=== PATIENT | male | born 1940 | race Caucasian/White ===

== ENCOUNTER 2020-09-15 12:00 | Outpatient (CLI) | payer MEDICARE, SELFPAY ==
[2020-09-15 12:44] LABS: Basophils Absolute Auto 0.02 K/mm3 (0.00-0.10); Basophils Percent Auto 0.4 % (0.0-1.0); Eosinophils Absolute Auto 0.08 K/mm3 (0.02-0.50); Eosinophils Percent Auto 1.4 % (1.0-6.0); Hematocrit 36.8 % (37.0-46.0); Hemoglobin 12.6 g/dL (12.4-15.3); Immature Granulocyte Absolute 0.03 K/mm3 (0.00-0.00); Immature Granulocyte Percent A 0.5 % (0.0-0.0); Lymphocytes Absolute Auto 0.83 K/mm3 (1.10-4.50); Lymphocytes Percent Auto 14.9 % (18.0-42.0); Mean Corpuscular HGB Conc 34.2 g/dL (32.0-36.0); Mean Corpuscular Hemoglobin 30.4 pg (27.0-31.0); Mean Corpuscular Volume 88.7 fL (78.0-102.0); Mean Platelet Volume 9.1 fl (8.7-11.0); Monocytes Absolute Auto 0.42 K/mm3 (0.10-0.90); Monocytes Percent Auto 7.6 % (2.0-11.0); Neutrophils Absolute Auto 4.2 K/mm3 (1.7-7.2); Neutrophils Percent Auto 75.2 % (50.0-70.0); Platelet Count Result 204 K/mm3 (150-420); Red Blood Count 4.15 M/mm3 (4.70-6.10); Red Cell Distribution Width 11.9 % (11.6-14.4); White Blood Count 5.6 K/mm3 (4.8-10.8)
[2020-09-15 13:39] LABS: Anion Gap 8 mmol/L (8-16); Blood Urea Nitrogen 26 mg/dL (7-18); Calcium 9.1 mg/dL (8.5-10.1); Carbon Dioxide 30 mmol/L (21-32); Chloride 102 mmol/L (98-108); Estimated Glomerular Filt Rate 41; Ferritin 181 ng/mL (26-388); Free T4 Free Thyroxine 0.97 ng/dL (0.76-1.46); Glucose 128 mg/dL (70-99); Iron 83 ug/dL (65-175); Osmolality Calculated 296 mOsm/kg (285-295); Percent Iron Saturation 32 % (12-57); Potassium 4.5 mmol/L (3.5-5.1); Sodium 140 mmol/L (136-145); Thyroid Stimulating Hormone 3.01 uIU/mL (0.36-3.74); Vitamin B12 541 pg/mL (193-986)
== END 2020-09-15 12:01 | disposition home or self-care (01) ==
LOC: CHSLAB 12:03
PROVIDERS: PCP Internal Medicine; Visit Provider Internal Medicine
DX: D64.9 Anemia, unspecified (principal); I10 Essential (primary) hypertension
CPT/HCPCS: 36415; 80048; 82607; 82728; 83540; 83550; 84439; 84443; 84481; 85025

== ENCOUNTER 2020-09-20 10:33 | Outpatient (CLI) | payer MEDICARE, SELFPAY ==
--- NOTE | 2020-09-20 10:38 | ECHO_ITS ---
Patient Info Name: Sami Bryant Age: 80 years : 1940 Gender: Male Ht: 67 in Wt: 170 lbs BSA: 1.92 m2 HR: 65 bpm BP: 124 / 40 mmHg Heart Rhythm: Sinus Rhythm Technical Quality: Good Exam Date: 09/20/2020 9:41 AM Exam Location: [facility] Patient Status: Outpatient Admit Date: 09/20/2020 Staff Ordering Physician: Ko Nunez MD Steel Welder: Stephanie Severino RDCS Attending Provider: Ko Nunez MD Referring Physician: Enrique HECK; Exam Type: CA echo doppler color flow Study Info Indications I34.0 - Nonrheumatic mitral (valve) insufficiency Complete two-dimensional, color flow and Doppler transthoracic echocardiogram is performed. Strain analysis performed. History/Risk Factors Hypertension: No Dyslipidemia: No Congenital Heart Disease (CHD): No Diabetic Therapy: Oral Peripheral Arterial Disease (PAD): No Myocardial Infarction (LA): No Chronic Lung Disease: No Obesity: No Renal Disease: No Coronary Artery Disease (CAD) No Congestive Heart Failure (CHF): No Cardiomyopathy/LV Systolic Dysfunction: No Diabetes Mellitus: Type II COPD: No Tobacco Use: Never Cerebrovascular Disease: No Family History: Diabetes Mellitus Deep Vein Thrombosis (DVT): None Dialysis: None Frailty Scale (CSHA): 3: Managing Well Cardiac Arrest: No Summary 1. Complete two-dimensional, color flow and Doppler transthoracic echocardiogram is performed. 2. Left ventricular chamber dimension is normal. 3. Left ventricular systolic function is normal, estimated at 60-65%. 4. There is moderately increased left ventricular wall thickness. 5. The left ventricular diastolic function is grade I diastolic dysfunction. 6. E/e' 21 is elevated. 7. Global longitudinal strain is normal at -19.5%. 8. Left atrial chamber dimension is moderately enlarged. 9. There is severe aortic valve sclerosis. 10. There is moderate aortic valve stenosis with a peak velocity of 304 cm/s, mean gradient of 10 mmHg, and aortic valve area of 1.3 cm2. 11. There is mild to moderate aortic valve regurgitation. 12. The mitral valve has mildly thickened leaflets and moderately calcified annulus. 13. There is trace mitral valve regurgitation. 14. There is trace tricuspid valve regurgitation. 15. No pulmonary hypertension, estimated pulmonary arterial systolic pressure is 26 mmHg. 16. Small atheroma in anterior and posterior aortic root. Recommendations * Continue medical therapy for diabetes. Left Ventricle E/e' 21 is elevated. Global longitudinal strain is normal at -19.5%. Left ventricular chamber dimension is normal. Left ventricular systolic function is normal, estimated at 60-65%. There is moderately increased left ventricular wall thickness. The left ventricular diastolic function is grade I diastolic dysfunction. Right Ventricle Right ventricular chamber dimension is normal. Right ventricular systolic function is normal. Left Atria Left atrial chamber dimension is moderately enlarged. Right Atria Right atrial chamber dimension is normal. Aortic Valve The aortic valve is trileaflet. There is severe aortic valve sclerosis. There is moderate aortic valve stenosis with a peak velocity of 304 cm/s, mean gradient of 10 mmHg, and aortic valve area of 1.3 cm2. There is mild to moderate aortic valve regurgitation. Pulmonic Valve There is no pulmonic regurgitation. Mitral Valve The mitral v
== END 2020-09-20 10:34 | disposition home or self-care (01) ==
LOC: CHSIMG 10:34
PROVIDERS: PCP Internal Medicine; Visit Provider Internal Medicine
DX: R01.1 Cardiac murmur, unspecified (principal)
CPT/HCPCS: 93306

== ENCOUNTER 2020-11-21 21:28 | Emergency (ER) | payer MEDICARE, SELFPAY ==
--- NOTE | ~2020-11-21 | XR_ITS ---
XR chest 1V portable DATE: 11/21/2020 22:00 INDICATION: Chest pain, bradycardia, sweating, vomiting TECHNIQUE: Portable upright AP chest views on 11/21/2020 at 2158 2159 hours COMPARISON: 12/10/2018 PA and lateral chest FINDINGS: Heart size is normal. Is mild aortic unfolding. No hilar or mediastinal enlargement. No pul monary infiltrate or consolidation, pleural effusion or pulmonary vascular congestion or pneumothorax . IMPRESSION: No active cardiopulmonary disease Reviewed, dictated and finalized at location [facility].
--- NOTE | ~2020-11-21 | CT_ITS ---
EXAMINATION: CT brain wo con DATE: 11/21/2020 22:10 INDICATION: Altered mental status TECHNIQUE: Computed tomography (CT) of the head was performed without intravenous contrast. The mA wa s adjusted according to patient size. Iterative reconstruction technique was employed. Exam dose: 68 1.00 mGy-cm total exam DLP. COMPARISON: None FINDINGS: There is bilateral carotid siphon internal carotid artery prominent calcification. There is nonspecific diminished attenuation of the subcortical and periventricular cerebral white matter, lik hoang due to chronic small vessel ischemic changes. Minimal left basal ganglia calcification. No intracranial mass lesion or hemorrhage, midline shift or mass effect effect or subdural or epidura l hematoma is detected. No fracture or bone destruction of the cranial vault. The included paranasal sinuses and mastoid air cells are normally developed and aerated. IMPRESSION: Cerebral atherosclerosis and chronic small vessel ischemic changes of the cerebral white matter No acute intracranial finding Reviewed, dictated and finalized at Location [facility]. Reviewed, dictated and finalized at location [facility].
[2020-11-21 21:38] VITALS: BP 126/52; PULSE 59; RESP 18; TEMP 36.2; O2SAT 100
--- NOTE | 2020-11-21 21:48 | ECG_ITS ---
Measurements Intervals [place] Rate: 66 P: [place]: 0 QRS: -54 QRSD: 133 T: 32 QT: 465 QTc: 488 Interpretive Statements SINUS OR ECTOPIC ATRIAL RHYTHM RIGHT BUNDLE BRANCH BLOCK LEFT ANTERIOR FASCICULAR BLOCK BASELINE ARTIFACT- I, II, III, AVR, AVL, AVF, V1-V6 ABNORMAL ECG Electronically Signed On 11-22-2020 6:05:28 CDT by Rc Barnes D.O.
[2020-11-21] MEDS: LACTATED RINGERS 1,000 ML 999 ML IV CONT (22:09)
[2020-11-21 22:10] VITALS: BP 153/103; PULSE 62; RESP 16; TEMP 36.5; O2SAT 99
--- NOTE | 2020-11-21 22:23 | ED.AMS ---
HPI - Altered Mental Status General Chief Complaint: Altered Mental Status Stated Complaint: ams, hr 40 at time of arrival Time Seen by Provider: 11/21/20 21:47 Source: patient and family Mode of arrival: EMS Limitations: dementia History of Present Illness HPI narrative: Patient is an 80-year-old male brought in by EMS after having an episode of unresponsiveness at home, described by as staring into space, not responding, became diaphoretic and threw up which lasted approximately 3 minutes and now resolved. states that he is back to baseline. Patient denies any complaints. Patient denies any headache, dizziness, chest pain, shortness of breath, abdominal pain, nausea, diarrhea, fever, chills or urinary symptoms. Related Data Allergies Allergy/AdvReac Type Severity Reaction Status Date / Time No Known Allergies Allergy Unverified 12/10/18 11:51 Review of Systems Review of Systems: All systems reviewed & are unremarkable except as noted in HPI and below Constitutional: Constitutional: Denies body ache(s), Denies chills, Denies excessive sweating, Denies fatigue, Denies fever(s), Denies headache(s), Denies lethargy, Denies malaise, Denies weakness and Denies weight loss Eyes: Eyes: Denies blurry vision, Denies change in vision and Denies loss of vision ENT: Denies dizziness, Denies ear discharge, Denies headache(s), Denies lip swelling, Denies epistaxis, Denies nasal congestion, Denies neck pain, Denies throat swelling and Denies tongue swelling Cardiovascular: Cardiovascular: Denies chest pain, Denies chest pain at rest, Denies chest pain with activity, Denies diaphoresis, Denies rapid heart rate, Denies edema, Denies irregular heart rhythm, Denies lightheadedness, Denies palpitations, Denies dyspnea and Denies dyspnea on exertion Respiratory: Respiratory: Denies chest congestion, Denies cough, Denies hemoptysis, Denies dyspnea and Denies dyspnea on exertion Gastrointestinal: Gastrointestinal: Denies abdominal pain, Denies melena, Denies hematochezia, Denies diarrhea, Denies nausea, Denies vomiting and Denies hematemesis Musculoskeletal: Musculoskeletal: Denies abnormal gait, Denies deformity, Denies joint swelling, Denies limited range of motion, Denies neck pain and Denies numbness Neurologic: Denies Abnormal speech present, Denies abnormal gait, Denies dizziness, Denies headache(s), Denies focal weakness, Denies loss of vision, Denies numbness, Denies Other visual disturbances, Denies Sensory deficit (Neuro) and Denies weakness Psychiatric: Psychiatric: Denies confusion, Denies depression, Denies auditory hallucinations, Denies homicidal ideation and Denies suicidal ideation Endocrine: Endocrine: Denies cold intolerance, Denies excessive sweating, Denies fatigue, Denies heat intolerance and Denies palpitations Hematologic/Lymphatic: Hematologic/Lymphatic: Denies easy bleeding and Denies easy bruising Allergic/Immunologic: Allergic/Immunologic: Denies lip swelling, Denies throat swelling and Denies tongue swelling PMFSH Social History Social History Gender identity (if verbalized by the patient): Male Comments Past medical history: Alzheimer's dementia, hypertension, hyperlipidemia, diabetes Family history: Unknown Social history: Non-smoker no EtOH use, lives at home with Exam Const: General: cooperative, healthy appearing, comfortable, no acute distress, well developed, alert and awake; No confusion Orientation/consciousness: oriented to person, oriented to place and No confusion Limitations: no limitations HENMT: Head: normal to inspection, normocephalic and atraumatic Ears: hearing grossly normal bilaterally, TM normal on the right and TM normal on the left General nose exam: Normal external nose present, Normal nares present and No nasal discharge present Face and sinus: normal facial exam Mouth: Yes Normal oral and palatal mucosa present, Yes lip normal, Yes tongue normal and Yes oropharynx normal T
[2020-11-21 22:30] LABS: Basophils Percent Auto 0.3 % (0.2-1.2); Eosinophils Absolute Auto 0.1 K/mm3 (0-0.3); Eosinophils Percent Auto 1.1 % (0-4.4); Hematocrit 34.4 % (42.0-52.0); Hemoglobin 11.7 g/dL (14.0-18.0); Immature Granulocyte Absolute 0.02 K/mm3 (0.00-0.031); Immature Granulocyte Percent A 0.3 % (0-0.5); Lymphocytes Absolute Auto 0.61 K/mm3 (0.9-3.2); Lymphocytes Percent Auto 9.7 % (18.3-44.2); Mean Corpuscular Hemoglobin 30.2 pg (26-34); Mean Corpuscular Volume 88.7 fl (80-100); Mean Platelet Volume 9.6 fl (7.4-10.4); Monocytes Absolute Auto 0.4 K/mm3 (0.1-0.6); Monocytes Percent Auto 6.7 % (2.6-8.5); Neutrophils Absolute Auto 5.1 K/mm3 (1.3-6.7); Neutrophils Percent Auto 81.9 % (45.5-73.1); Platelet Count Result 170 k/mm3 (150-375); Red Blood Count 3.88 M/mm3 (4.6-6.20); Red Cell Distribution Width 11.6 % (11.5-14.5); White Blood Count 6.3 K/mm3 (4.5-10.0)
[2020-11-21 22:34] LABS: Partial Thromboplastin Time 23.9 SECONDS (22.3-36.8)
[2020-11-21 22:36] LABS: Alanine Aminotransferase 20 U/L (4-50); Albumin Level 3.8 g/dL (3.5-5.1); Alkaline Phosphatase 79 U/L (38-126); Anion Gap 9 mmol/L (8-16); Aspartate Amino Transferase 23 U/L (17-59); Bilirubin,Total 0.5 mg/dL (0.2-1.3); Blood Urea Nitrogen 25 mg/dL (9-20); Calcium 9.3 mg/dL (8.4-10.2); Carbon Dioxide 25 mmol/L (22-30); Chloride 105 mmol/L (98-107); Estimated CRCL calculation 33 ml/min; Estimated Glomerular Filt Rate 45; Glucose 224 mg/dL (75-110); Lactic Acid Reflex 2.2 mmol/L (0.7-2.1); Potassium 4.5 mmol/L (3.4-5.0); Sodium 139 mmol/L (137-145)
[2020-11-21 22:47] LABS: Troponin I 0.013 ng/mL (0.000-0.034)
[2020-11-21 23:00] VITALS: BP 118/53; PULSE 62; RESP 18; O2SAT 99
[2020-11-21 23:39] LABS: Add Urine Microscopic? YES; Appearance Urine Clear (Clear); Bilirubin Urine Negative (Negative); Blood Urine 1+ (Negative); Color Urine Yellow (Yellow); Glucose Urine UA 3+ mg/dL (Negative); Ketones Urine 1+ mg/dL (Negative); Leukocyte Esterase Ur Negative LEU/UL (Negative); Mucus Urine Rare /lpf; Nitrate Urine Negative (Negative); Protein Urine 1+ mg/dL (Negative); Specific Grav Ur 1.018 (1.001-1.035); Urobilinogen Urine Negative mg/dL (<2.0); WBC Urine 0-3 /hpf
[2020-11-22 00:18] VITALS: BP 116/59; PULSE 57; RESP 16; O2SAT 99
[2020-11-22 01:23] LABS: Reflex Lactic Acid Yes or No Add Lactic
== END 2020-11-22 00:18 | disposition home or self-care (01) ==
PROVIDERS: Emergency Provider Emergency Medicine; PCP Internal Medicine
DX: R40.4 Transient alteration of awareness (principal); G30.9 Alzheimer's disease, unspecified; F02.80 Dementia in other diseases classified elsewhere, unspecified severity, without behavioral disturbance, psychotic disturbance, mood disturbance, and anxiety; I10 Essential (primary) hypertension; E78.5 Hyperlipidemia, unspecified; E11.9 Type 2 diabetes mellitus without complications; I67.2 Cerebral atherosclerosis; I45.2 Bifascicular block
CPT/HCPCS: 36415; 51701; 70450; 71045; 80053; 81001; 83605; 84484; 85025; 85610; 85730; 93005; 96360; 99284; J7120

== ENCOUNTER 2020-12-04 12:51 | Outpatient (CLI) | payer MEDICARE, SELFPAY ==
--- NOTE | 2021-01-05 10:34 | WPDHOLTEREM ---
Holter/Event Monitor Holter/Event Monitor Date of procedure: 12/04/20 Holter/Event Procedure: Event Monitor Indications: Syncope Conclusion: 1. 26 days event monitor between 12/04/20-01/02/21. There are 30 available transmissions for analysis. 2. Predominant rhythm is sinus rhythm. HR range 50-132 bpm; average HR 65 bpm. 3. There are occasional premature supraventricular complexes with total burden of 2%. No supraventricular tachycardia. 4. There are occasional premature ventricular complexes with total burden of 2%. There is 1 episode of ventricular tachycardia at 132 bpm lasting 5 beats on 01/01/21 at 15:53. 5. No significant pauses greater than 2 seconds. 6. No symptoms available for correlation.
== END 2020-12-04 12:52 | disposition home or self-care (01) ==
PROVIDERS: PCP Internal Medicine; Visit Provider Internal Medicine
DX: R55 Syncope and collapse (principal); R00.1 Bradycardia, unspecified
CPT/HCPCS: 93272

== ENCOUNTER 2020-12-16 07:20 | Outpatient (CLI) | payer MEDICARE, SELFPAY ==
[2020-12-16 07:33] LABS: Basophils Absolute Auto 0.02 K/mm3 (0.00-0.10); Basophils Percent Auto 0.4 % (0.0-1.0); Eosinophils Absolute Auto 0.11 K/mm3 (0.02-0.50); Eosinophils Percent Auto 2.3 % (1.0-6.0); Hematocrit 37.1 % (37.0-46.0); Hemoglobin 12.9 g/dL (12.4-15.3); Immature Granulocyte Absolute 0.02 K/mm3 (0.00-0.00); Immature Granulocyte Percent A 0.4 % (0.0-0.0); Lymphocytes Absolute Auto 1.08 K/mm3 (1.10-4.50); Mean Corpuscular HGB Conc 34.8 g/dL (32.0-36.0); Mean Corpuscular Hemoglobin 30.9 pg (27.0-31.0); Mean Corpuscular Volume 88.8 fL (78.0-102.0); Mean Platelet Volume 9.4 fl (8.7-11.0); Monocytes Absolute Auto 0.39 K/mm3 (0.10-0.90); Monocytes Percent Auto 8.3 % (2.0-11.0); Neutrophils Absolute Auto 3.1 K/mm3 (1.7-7.2); Neutrophils Percent Auto 65.6 % (50.0-70.0); Platelet Count Result 196 K/mm3 (150-420); Red Blood Count 4.18 M/mm3 (4.70-6.10); Red Cell Distribution Width 11.4 % (11.6-14.4); White Blood Count 4.7 K/mm3 (4.8-10.8)
[2020-12-16 07:34] LABS: Add Urine Microscopic? YES; Appearance Urine Clear (Clear); Bilirubin Urine Negative (Negative); Blood Urine Negative (Negative); Color Urine Light Yellow (Yellow); Glucose Urine UA Trace (Negative); Ketones Urine Negative (Negative); Leukocyte Esterase Ur Negative LEU/UL (Negative); Nitrate Urine Negative (Negative); Protein Urine Negative (Negative); Specific Grav Ur 1.025 (1.010-1.020); Urobilinogen Urine 0.2 mg/dL (0.2-1.0); pH Urine 5.5 (5.0-8.0)
[2020-12-16 07:38] LABS: Bacteria Urine Trace /hpf; RBC Urine None seen /hpf (0-2); WBC Urine None seen /hpf (0-3)
[2020-12-16 07:42] LABS: Hemoglobin A1C 7.4 % (<5.7)
[2020-12-16 07:52] LABS: MALB Creatinine Ratio 9.8 mg/g (0-30); Microalbumin Urine Random < 13.0 mg/L
[2020-12-16 08:03] LABS: Alanine Aminotransferase 32 U/L (16-63); Albumin Level 3.8 g/dL (3.4-5.0); Alkaline Phosphatase 89 U/L (46-116); Anion Gap 9 mmol/L (8-16); Aspartate Amino Transferase 17 U/L (15-37); Bilirubin,Total 0.6 mg/dL (0.00-1.00); Blood Urea Nitrogen 31 mg/dL (7-18); Calcium 9.2 mg/dL (8.5-10.1); Carbon Dioxide 29 mmol/L (21-32); Chloride 102 mmol/L (98-108); Cholesterol 126 mg/dL (0-200); Creatine Kinase 54 U/L (39-308); Estimated Glomerular Filt Rate 52; Glucose 172 mg/dL (70-99); HDL Direct 45 mg/dL (40-60); LDL Cholesterol Calculated 65 mg/dL (<130); Osmolality Calculated 300 mOsm/kg (285-295); Potassium 4.6 mmol/L (3.5-5.1); Sodium 140 mmol/L (136-145); Total Protein 6.9 g/dL (6.4-8.2); Triglycerides 78 mg/dL (0-150)
== END 2020-12-16 07:21 | disposition home or self-care (01) ==
PROVIDERS: PCP Internal Medicine; Visit Provider Internal Medicine
DX: E11.65 Type 2 diabetes mellitus with hyperglycemia (principal); E78.5 Hyperlipidemia, unspecified; N40.1 Benign prostatic hyperplasia with lower urinary tract symptoms
CPT/HCPCS: 36415; 80053; 80061; 81001; 82043; 82550; 83036; 85025

== ENCOUNTER 2021-02-15 08:29 | Outpatient (CLI) | payer MEDICARE, SELFPAY ==
--- NOTE | 2021-02-15 09:25 | ECHO_ITS ---
Patient Info Name: Sami Bryant Age: 80 years : 1940 Gender: Male Ht: 69 in Wt: 170 lbs BSA: 1.95 m2 HR: 70 bpm BP: 136 / 49 mmHg Exam Date: 02/15/2021 8:27 AM Exam Location: [facility] Patient Status: Outpatient Admit Date: 02/15/2021 Staff Ordering Physician: Ko Nunez MD Knife Setter: Gentry Perrin RDCS, RT Attending Provider: Ko Nunez MD Referring Physician: Enrique HECK; Exam Type: CA echo doppler color flow Study Info Indications I47.2 - Ventricular tachycardia Complete two-dimensional, color flow and Doppler transthoracic echocardiogram is performed. Strain analysis performed. History/Risk Factors Hypertension: No Dyslipidemia: No Congenital Heart Disease (CHD): No Diabetic Therapy: Oral Peripheral Arterial Disease (PAD): No Myocardial Infarction (CT): No Chronic Lung Disease: No Obesity: No Renal Disease: No Coronary Artery Disease (CAD) No Congestive Heart Failure (CHF): No Cardiomyopathy/LV Systolic Dysfunction: No Diabetes Mellitus: Type II COPD: No Tobacco Use: Never Cerebrovascular Disease: No Family History: Diabetes Mellitus Deep Vein Thrombosis (DVT): None Dialysis: None Frailty Scale (CSHA): 3: Managing Well Cardiac Arrest: No Summary 1. Complete two-dimensional, color flow and Doppler transthoracic echocardiogram is performed. 2. Left ventricular chamber dimension is normal. 3. Left ventricular systolic function is normal, estimated at 60-65%. 4. There is mildly increased left ventricular wall thickness. 5. The left ventricular diastolic function is grade I diastolic dysfunction. 6. E/e' 9 is minimally elevated. 7. Global longitudinal strain is normal at -17.6%. 8. There is moderate aortic valve sclerosis. 9. There is moderate aortic valve stenosis with a peak velocity of 295 cm/s, mean gradient of 14 mmHg, and aortic valve area of 1.0 cm2. 10. There is mild aortic valve regurgitation. 11. The mitral valve has severely calcified annulus. 12. No pulmonary hypertension, estimated pulmonary arterial systolic pressure is 25 mmHg. Recommendations * Continue medical therapy for diabetes. Left Ventricle E/e' 9 is minimally elevated. Global longitudinal strain is normal at -17.6%. Left ventricular chamber dimension is normal. Left ventricular systolic function is normal, estimated at 60-65%. There is mildly increased left ventricular wall thickness. The left ventricular diastolic function is grade I diastolic dysfunction. Right Ventricle Right ventricular systolic function is normal and with normal TAPSE 1.9 cm. Right ventricular chamber dimension is normal. Left Atria Left atrial chamber dimension is normal. Right Atria Right atrial chamber dimension is normal. Aortic Valve The aortic valve is not well visualized. There is moderate aortic valve sclerosis. There is moderate aortic valve stenosis with a peak velocity of 295 cm/s, mean gradient of 14 mmHg, and aortic valve area of 1.0 cm2. There is mild aortic valve regurgitation. Pulmonic Valve There is no pulmonic regurgitation. Mitral Valve The mitral valve has severely calcified annulus. There is no mitral valve stenosis. There is no mitral valve regurgitation. Tricuspid Valve There is no tricuspid valve regurgitation. No pulmonary hypertension, estimated pulmonary arterial systolic pressure is 25 mmHg. Pericardium/Pleural There is no per
== END 2021-02-15 08:30 | disposition home or self-care (01) ==
LOC: CHSIMG 08:30
PROVIDERS: PCP Internal Medicine; Visit Provider Internal Medicine
DX: I47.2 Ventricular tachycardia (principal); I65.29 Occlusion and stenosis of unspecified carotid artery; I08.0 Rheumatic disorders of both mitral and aortic valves
CPT/HCPCS: 93306

== ENCOUNTER 2021-03-20 07:56 | Outpatient (CLI) | payer MEDICARE, SELFPAY ==
[2021-03-20 08:15] LABS: Add Urine Microscopic? NO; Appearance Urine Clear (Clear); Basophils Absolute Auto 0.02 K/mm3 (0.00-0.10); Basophils Percent Auto 0.4 % (0.0-1.0); Bilirubin Urine Negative (Negative); Blood Urine Negative (Negative); Color Urine Light Yellow (Yellow); Eosinophils Absolute Auto 0.08 K/mm3 (0.02-0.50); Eosinophils Percent Auto 1.4 % (1.0-6.0); Glucose Urine UA Negative (Negative); Hemoglobin 14.1 g/dL (12.4-15.3); Immature Granulocyte Absolute 0.02 K/mm3 (0.00-0.00); Immature Granulocyte Percent A 0.4 % (0.0-0.0); Ketones Urine Negative (Negative); Leukocyte Esterase Ur Negative LEU/UL (Negative); Lymphocytes Absolute Auto 0.57 K/mm3 (1.10-4.50); Mean Corpuscular HGB Conc 34.4 g/dL (32.0-36.0); Mean Corpuscular Hemoglobin 30.1 pg (27.0-31.0); Mean Corpuscular Volume 87.6 fL (78.0-102.0); Mean Platelet Volume 9.2 fl (8.7-11.0); Monocytes Absolute Auto 0.36 K/mm3 (0.10-0.90); Monocytes Percent Auto 6.3 % (2.0-11.0); Neutrophils Absolute Auto 4.6 K/mm3 (1.7-7.2); Neutrophils Percent Auto 81.5 % (50.0-70.0); Nitrate Urine Negative (Negative); Platelet Count Result 193 K/mm3 (150-420); Protein Urine Negative (Negative); Red Blood Count 4.68 M/mm3 (4.70-6.10); Red Cell Distribution Width 11.5 % (11.6-14.4); Specific Grav Ur 1.025 (1.010-1.020); Urobilinogen Urine 0.2 mg/dL (0.2-1.0); White Blood Count 5.7 K/mm3 (4.8-10.8); pH Urine 5.5 (5.0-8.0)
[2021-03-20 08:31] LABS: Creatinine Urine 156.92 mg/dL (40-278); Hemoglobin A1C 7.9 % (<5.7); MALB Creatinine Ratio 8.2 mg/g (0-30); Microalbumin Urine Random < 13.0 mg/L
[2021-03-20 09:25] LABS: Alanine Aminotransferase 27 U/L (16-63); Alkaline Phosphatase 91 U/L (46-116); Anion Gap 8 mmol/L (8-16); Aspartate Amino Transferase 15 U/L (15-37); Bilirubin,Total 0.7 mg/dL (0.00-1.00); Blood Urea Nitrogen 24 mg/dL (7-18); Calcium 9.3 mg/dL (8.5-10.1); Carbon Dioxide 30 mmol/L (21-32); Chloride 103 mmol/L (98-108); Cholesterol 119 mg/dL (0-200); Creatine Kinase 64 U/L (39-308); Estimated Glomerular Filt Rate 50; Ferritin 166 ng/mL (26-388); Glucose 126 mg/dL (70-99); HDL Direct 48 mg/dL (40-60); Iron 95 ug/dL (65-175); LDL Cholesterol Calculated 54 mg/dL (<130); Osmolality Calculated 298 mOsm/kg (285-295); Percent Iron Saturation 43 % (12-57); Potassium 4.5 mmol/L (3.5-5.1); Sodium 141 mmol/L (136-145); Thyroid Stimulating Hormone 5.35 uIU/mL (0.36-3.74); Triglycerides 86 mg/dL (0-150); Vitamin B12 829 pg/mL (193-986)
== END 2021-03-20 07:57 | disposition home or self-care (01) ==
LOC: CHSLAB 07:58
PROVIDERS: PCP Internal Medicine; Visit Provider Internal Medicine
DX: E11.65 Type 2 diabetes mellitus with hyperglycemia (principal); E78.2 Mixed hyperlipidemia; I12.9 Hypertensive chronic kidney disease with stage 1 through stage 4 chronic kidney disease, or unspecified chronic kidney disease; D64.9 Anemia, unspecified; N18.30 Chronic kidney disease, stage 3 unspecified; N39.0 Urinary tract infection, site not specified
CPT/HCPCS: 36415; 80053; 80061; 81003; 82043; 82550; 82607; 82728; 83036; 83540; 83550; 84439; 84443; 84481; 85025

== ENCOUNTER 2021-04-24 14:30 | Outpatient (CLI) | payer MEDICARE, SELFPAY ==
--- NOTE | ~2021-04-24 | US_ITS ---
EXAMINATION: US carotid duplex BI EXAM DATE: 04/24/2021 15:05 INDICATION: Left carotid bruit, abnormal physical exam. Carotid arteriosclerosis on prior study. TECHNIQUE: Grayscale, color and pulsed Doppler images of the cervical carotid arteries were obtained . The degree of vessel stenosis is placed in one of the following categories: normal, <50% stenosis, 50-69% stenosis, >=70% stenosis but less than near-occlusion, near-occlusion, or occlusion. Note that percent stenosis relative to normal distal artery lumen diameter is indirectly measured from velocit y measurements as described by Fidel, et al. Radiology 2003; 229:340-346. Comparison is made to prior examination from 12/11/2018. FINDINGS: RIGHT SIDE: Right common carotid artery peak systolic velocity (PSV in cm/s): 86 Right bulb/internal carotid artery peak systolic velocity (PSV in cm/s): 137 Right internal carotid artery end diastolic velocity (EDV in cm/s): 23.5 Right ICA/CCA peak systolic ratio: 1.6 Right external carotid artery peak systolic velocity (PSV in cm/s): 110 Right vertebral artery antegrade flow: yes There is moderate carotid bulb plaque. Velocity and Doppler waveforms in the common and internal carotid arteries with mildly elevated ICA v elocity corresponding to 50-69% stenosis. Difficult to visually determine if this is accurate or over estimated due to dense calcification within the plaque visualized. LEFT SIDE: Left common carotid artery peak systolic velocity (PSV in cm/s): 85 Left bulb/internal carotid artery peak systolic velocity (PSV in cm/s): 25 Left internal carotid artery end diastolic velocity (EDV in cm/s): 90 Left ICA/CCA peak systolic ratio: 1.1 Left external carotid artery peak systolic velocity (PSV in cm/s): 155 Left vertebral artery antegrade flow: yes There is mild carotid bulb plaque. Velocity and Doppler waveforms in the common and internal carotid arteries is normal. IMPRESSION: 1. 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 2. Less than 50 percent stenosis in the left internal carotid artery. Reviewed, dictated and finalized at location A.
== END 2021-04-24 14:31 | disposition home or self-care (01) ==
LOC: ANHIMG 14:33
PROVIDERS: PCP Internal Medicine; Visit Provider Internal Medicine Cardiovascular Disease
DX: I65.23 Occlusion and stenosis of bilateral carotid arteries (principal)
CPT/HCPCS: 93880

== ENCOUNTER 2021-06-26 09:52 | Emergency (ER) | payer MEDICARE, SELFPAY ==
[2021-06-26 10:09] VITALS: BP 132/96; PULSE 62; RESP 16; TEMP 37.1; O2SAT 98
--- NOTE | 2021-06-26 10:31 | ED.SYNCOPE ---
HPI - Syncope General Chief Complaint: Syncope Stated Complaint: ambulance Source: patient, EMS and RN notes reviewed Mode of arrival: ambulatory Limitations: no limitations History of Present Illness HPI narrative: states that he had been up to eat taken a shower and was standing in the living room. She notice that his legs were about to buckle and he said he felt faint. She was able to get him in to the chair. He had no tonic clonic movements. She states that he seemed to be just staring and would not respond her. And then when he began responding again there was no confusion. complaint: loss of consciousness Onset (ago): minute(s) (15) -: second(s) Prodromal symptoms: lightheaded Context: standing up Injuries sustained associated with event: none Current symptoms: back to baseline History: previous syncopal episode Treatments prior to arrival: none Related Data Home Medications Medication Instructions Recorded Confirmed atorvastatin 20 mg PO DAILY 06/26/21 06/26/21 donepezil 10 mg PO HS 06/26/21 06/26/21 losartan 25 mg PO DAILY 06/26/21 06/26/21 Allergies Allergy/AdvReac Type Severity Reaction Status Date / Time No Known Allergies Allergy Unverified 11/28/20 14:54 Review of Systems Review of Systems: All systems reviewed & are unremarkable except as noted in HPI and below Constitutional: Constitutional: Denies chills and Denies fever(s) Cardiovascular: Cardiovascular: Denies chest pain Respiratory: Respiratory: Denies dyspnea Neurologic: Denies Neuro-related abnormal movements, Denies Abnormal speech present, Denies behavioral changes, Denies confusion, Denies focal weakness, Denies seizure-like activity and Denies paresthesias [facility] Past Medical History Medical History (Updated 06/26/21 @ 13:19 by Cristiano Tsang MD) Colon cancer Hyperlipidemia Hypertension Insulin-requiring or dependent type II diabetes mellitus Surgical History Surgical History (Updated 06/26/21 @ 13:17 by Cristiano Tsang MD) H/O colectomy Social History Social History (Updated 06/26/21 @ 13:17 by Cristiano Tsang MD) Smoking status: Former smoker Substance use: never Gender identity (if verbalized by the patient): Male Exam Const: General: healthy appearing, no acute distress and alert Nutritional Appearance: well nourished and thin Orientation/consciousness: patient oriented x3 HENMT: Head: normal to inspection Ears: external ears normal Face and sinus: normal facial exam Mouth: Yes moist mucous membranes Eyes: Conjunctivae: conjunctivae normal Pupils: Equal, round and reactive pupils present EOM: EOMs intact bilaterally Neck: Neck: normal visual inspection Resp: Effort & Inspection: normal respiratory effort Auscultation: clear to auscultation bilaterally Cardio: Rate: regular rate Rhythm: regular rhythm GI: GI Palp: Yes Soft to palpation, No Tenderness to palpation present (GI) and No Guarding due to palpation present (GI) Auscultation: normal bowel sounds Back/Spine/Pelvis: Cervical Spine: cervical ROM normal Thoracic/Lumbar Spine: thoraco-lumbar ROM normal Skin: General skin exam: normal color Rashes: no rashes Neuro: General: patient oriented x3, moves all extremities, no meningeal signs, no focal motor deficits and CN's II-XI intact bilaterally Speech: normal speech Gait exam (Neuro): Normal gait present Extrem: General: normal to inspection and no clubbing, cyanosis or edema Psych: Appearance: grossly normal and well kempt Mental Status: mental status grossly normal Affect: normal affect Attitude: cooperative Thought content: Yes Normal thought content present Course Vital Signs Vital signs: Vital Signs Temperature 37.1 C 06/26/21 10:09 Pulse Rate 62 06/26/21 10:09 Respiratory Rate 16 06/26/21 10:09 Blood Pressure 132/96 H 06/26/21 10:09 Pulse Oximetry 98 06/26/21 10:09 Temperature 36.7 C 06/26/21 13:49 Pulse Rate 69 06/26/21 13:49 R
--- NOTE | 2021-06-26 10:32 | ECG_ITS ---
Measurements Intervals [place] Rate: 68 P: 85 [place]: 217 QRS: -68 QRSD: 125 T: 33 QT: 460 QTc: 491 Interpretive Statements SINUS RHYTHM WITH FIRST DEGREE AV BLOCK RIGHT BUNDLE BRANCH BLOCK LEFT ANTERIOR FASCICULAR BLOCK Electronically Signed On 06-26-2021 11:10:11 GASKET SUPERVISOR by Lonny Kumar D.O
[2021-06-26 10:50] LABS: Basophils Absolute Auto 0.02 K/mm3 (0.00-0.10); Basophils Percent Auto 0.3 % (0.0-1.0); Eosinophils Absolute Auto 0.04 K/mm3 (0.02-0.50); Eosinophils Percent Auto 0.6 % (1.0-6.0); Hematocrit 38.6 % (37.0-46.0); Hemoglobin 13.1 g/dL (12.4-15.3); Immature Granulocyte Absolute 0.02 K/mm3 (0.00-0.00); Immature Granulocyte Percent A 0.3 % (0.0-0.0); Lymphocytes Absolute Auto 0.25 K/mm3 (1.10-4.50); Lymphocytes Percent Auto 3.9 % (18.0-42.0); Mean Corpuscular HGB Conc 33.9 g/dL (32.0-36.0); Mean Corpuscular Hemoglobin 30.8 pg (27.0-31.0); Mean Corpuscular Volume 90.8 fL (78.0-102.0); Mean Platelet Volume 9.3 fl (8.7-11.0); Monocytes Absolute Auto 0.33 K/mm3 (0.10-0.90); Monocytes Percent Auto 5.1 % (2.0-11.0); Neutrophils Absolute Auto 5.8 K/mm3 (1.7-7.2); Neutrophils Percent Auto 89.8 % (50.0-70.0); Platelet Count Result 152 K/mm3 (150-420); Red Blood Count 4.25 M/mm3 (4.70-6.10); Red Cell Distribution Width 11.9 % (11.6-14.4); White Blood Count 6.4 K/mm3 (4.8-10.8)
[2021-06-26 11:15] LABS: Alanine Aminotransferase 21 U/L (16-63); Albumin Level 3.5 g/dL (3.4-5.0); Alkaline Phosphatase 76 U/L (46-116); Anion Gap 11 mmol/L (8-16); Aspartate Amino Transferase 13 U/L (15-37); Bilirubin,Total 0.6 mg/dL (0.00-1.00); Blood Urea Nitrogen 18 mg/dL (7-18); Calcium 8.9 mg/dL (8.5-10.1); Carbon Dioxide 26 mmol/L (21-32); Chloride 103 mmol/L (98-108); Estimated CRCL calculation 31 ml/min; Estimated Glomerular Filt Rate 42; Glucose 189 mg/dL (70-99); Magnesium 2.1 mg/dL (1.8-2.4); Osmolality Calculated 296 mOsm/kg (285-295); Potassium 4.7 mmol/L (3.5-5.1); Sodium 140 mmol/L (136-145); Total Protein 6.7 g/dL (6.4-8.2); Troponin I 21.6 ng/L (0.00-60.4)
[2021-06-26 12:48] LABS: Add Urine Microscopic? YES; Appearance Urine Clear (Clear); Bilirubin Urine Negative (Negative); Blood Urine Negative (Negative); Color Urine Light Yellow (Yellow); Glucose Urine UA 1+ (Negative); Ketones Urine 1+ (Negative); Leukocyte Esterase Ur Negative LEU/UL (Negative); Nitrate Urine Negative (Negative); Protein Urine Negative (Negative); Urobilinogen Urine 0.2 mg/dL (0.2-1.0)
[2021-06-26 12:52] LABS: RBC Urine 0-2 /hpf (0-2)
[2021-06-26 12:53] LABS: Bacteria Urine 2+ /hpf; Squamous Epithelial Cell Urine None seen /hpf (Few); WBC Urine 0-3 /hpf (0-3)
[2021-06-26 13:49] VITALS: BP 112/69; PULSE 69; RESP 19; TEMP 36.7; O2SAT 98
== END 2021-06-26 13:50 | disposition home or self-care (01) ==
PROVIDERS: Emergency Provider Emergency Medicine
DX: R55 Syncope and collapse (principal); E78.5 Hyperlipidemia, unspecified; I10 Essential (primary) hypertension; E11.9 Type 2 diabetes mellitus without complications; Z79.4 Long term (current) use of insulin; Z87.891 Personal history of nicotine dependence
CPT/HCPCS: 36415; 80053; 81001; 83735; 84484; 85025; 93005; 99282; 99284

== ENCOUNTER 2021-07-14 08:15 | Outpatient (CLI) | payer MEDICARE, SELFPAY ==
[2021-07-14 08:34] LABS: Appearance Urine Clear (Clear); Basophils Absolute Auto 0.02 K/mm3 (0.00-0.10); Basophils Percent Auto 0.4 % (0.0-1.0); Bilirubin Urine Negative (Negative); Color Urine Yellow (Yellow); Eosinophils Absolute Auto 0.05 K/mm3 (0.02-0.50); Glucose Urine UA Negative (Negative); Hematocrit 41.7 % (37.0-46.0); Immature Granulocyte Absolute 0.01 K/mm3 (0.00-0.00); Immature Granulocyte Percent A 0.2 % (0.0-0.0); Ketones Urine Negative (Negative); Leukocyte Esterase Ur Negative (Negative); Lymphocytes Absolute Auto 0.68 K/mm3 (1.10-4.50); Lymphocytes Percent Auto 13.8 % (18.0-42.0); Mean Corpuscular HGB Conc 33.6 g/dL (32.0-36.0); Mean Corpuscular Hemoglobin 30.4 pg (27.0-31.0); Mean Corpuscular Volume 90.7 fL (78.0-102.0); Mean Platelet Volume 9.1 fl (8.7-11.0); Monocytes Absolute Auto 0.37 K/mm3 (0.10-0.90); Monocytes Percent Auto 7.5 % (2.0-11.0); Neutrophils Absolute Auto 3.8 K/mm3 (1.7-7.2); Neutrophils Percent Auto 77.1 % (50.0-70.0); Nitrate Urine Negative (Negative); Platelet Count Result 195 K/mm3 (150-420); Protein Urine Negative (Negative); Specific Grav Ur 1.025 (1.010-1.020); Urobilinogen Urine 0.2 mg/dL (0.2-1.0); White Blood Count 4.9 K/mm3 (4.8-10.8); pH Urine 5.5 (5.0-8.0)
[2021-07-14 08:45] LABS: MALB Creatinine Ratio 8.7 mg/g (0-30); Microalbumin Urine Random < 13.0 mg/L
[2021-07-14 08:49] LABS: Add Urine Microscopic? YES; Bacteria Urine None seen /hpf; Blood Urine Trace-lysed (Negative); RBC Urine None seen /hpf (0-2); WBC Urine None seen /hpf (0-3)
[2021-07-14 09:41] LABS: Alanine Aminotransferase 23 U/L (16-63); Alkaline Phosphatase 76 U/L (46-116); Anion Gap 6 mmol/L (8-16); Aspartate Amino Transferase 15 U/L (15-37); Bilirubin,Total 0.6 mg/dL (0.00-1.00); Blood Urea Nitrogen 26 mg/dL (7-18); Calcium 9.1 mg/dL (8.5-10.1); Carbon Dioxide 32 mmol/L (21-32); Chloride 100 mmol/L (98-108); Cholesterol 147 mg/dL (0-200); Creatine Kinase 59 U/L (39-308); Estimated Glomerular Filt Rate 50; Glucose 138 mg/dL (70-99); HDL Direct 64 mg/dL (40-60); LDL Cholesterol Calculated 72 mg/dL (<130); Osmolality Calculated 292 mOsm/kg (285-295); Potassium 4.4 mmol/L (3.5-5.1); Sodium 138 mmol/L (136-145); Thyroid Stimulating Hormone 4.11 uIU/mL (0.36-3.74); Total Protein 7.1 g/dL (6.4-8.2); Triglycerides 54 mg/dL (0-150); Vitamin B12 692 pg/mL (193-986)
[2021-07-17 14:47] LABS: Hemoglobin A1C 6.3 % (<5.7)
== END 2021-07-14 08:16 | disposition home or self-care (01) ==
LOC: CHSLAB 08:17
PROVIDERS: PCP Internal Medicine; Visit Provider Internal Medicine
DX: E11.65 Type 2 diabetes mellitus with hyperglycemia (principal); I12.9 Hypertensive chronic kidney disease with stage 1 through stage 4 chronic kidney disease, or unspecified chronic kidney disease; E78.2 Mixed hyperlipidemia; N18.30 Chronic kidney disease, stage 3 unspecified
CPT/HCPCS: 36415; 80053; 80061; 81001; 82043; 82550; 82607; 83036; 84439; 84443; 84481; 85025

== ENCOUNTER 2021-09-03 13:54 | Emergency (ER) | payer MEDICARE, SELFPAY ==
--- NOTE | ~2021-09-03 | CT_ITS ---
EXAMINATION: CT brain wo con DATE: 09/03/2021 14:37 INDICATION: Head injury. TECHNIQUE: Computed tomography (CT) of the head was performed without intravenous contrast. The mA wa s adjusted according to patient size. Iterative reconstruction technique was employed. The dose-lengt h product was 681.00 mGy-cm. COMPARISON: Head CT 11/21/2020 FINDINGS: There is no intracranial hemorrhage, acute infarction, or abnormal intracranial mass lesion . There are scattered areas of low attenuation in the cerebral white matter. The ventricles are ritu l in size. There are likely changes of ocular lens replacement surgeries. There is a right frontal sc alp hematoma. There is mild mucosal thickening in the ethmoid sinuses. The orbits are normal. The mas toid air cells are normal. IMPRESSION: 1. Stable moderate nonspecific cerebral white matter disease, which likely represents chronic small v essel ischemic disease. Reviewed, dictated and finalized at location A. IMPRESSION: 1. Stable moderate nonspecific cerebral white matter disease, which likely repr esents chronic small vessel ischemic disease.
--- NOTE | ~2021-09-03 | XR_ITS ---
XR finger 5th RT min 2V 09/03/2021 14:37 Indication: Right fifth finger pain post reduction Procedure: 3 views right fifth finger Comparison: No prior studies for comparison. Findings: Mild polyarticular osteoarthritis. No fracture, subluxation or dislocation. No significant soft tissue abnormality. No foreign bodies. Impression: 1: No acute bone or joint abnormality. Reviewed, dictated and finalized at location B. Impression: 1: No acute bone or joint abnormality.
[2021-09-03 14:10] VITALS: BP 113/64; PULSE 80; TEMP 36.9; O2SAT 97
--- NOTE | 2021-09-03 14:15 | ED.FALL ---
HPI - Fall General Chief Complaint: Fall Stated Complaint: Finger pain,head pain Time Seen by Provider: 09/03/21 14:07 Source: patient, family and RN notes reviewed Mode of arrival: ambulatory Limitations: no limitations History of Present Illness complaint: fall Onset (ago): minute(s) (30) Fall from: standing Fall witnessed: yes, by bystander Loss of consciousness: none Symptoms prior to fall: none Context: tripped/slipped (walking in gravel) Location of injury: head Location of injury - extremities: Right: hand (5th finger) Severity: mild Quality: dull and aching Associated symptoms (after fall): denies Related Data Home Medications Medication Instructions Recorded Confirmed atorvastatin 20 mg PO DAILY 06/26/21 09/03/21 donepezil 10 mg PO HS 06/26/21 09/03/21 losartan 25 mg PO DAILY 06/26/21 09/03/21 Allergies Allergy/AdvReac Type Severity Reaction Status Date / Time No Known Allergies Allergy Unverified 09/03/21 14:14 Review of Systems Review of Systems: All systems reviewed & are unremarkable except as noted in HPI and below PMFSH Past Medical History Medical History Colon cancer Hyperlipidemia Hypertension Insulin-requiring or dependent type II diabetes mellitus Surgical History Surgical History H/O colectomy Social History Social History Smoking status: Former smoker Substance use: never Gender identity (if verbalized by the patient): Male Exam Const: General: healthy appearing and no acute distress Nutritional Appearance: well nourished and thin Orientation/consciousness: patient oriented x3 Eyes: Conjunctivae: conjunctivae normal Pupils: Equal, round and reactive pupils present EOM: EOMs intact bilaterally Neck: Neck: normal visual inspection Resp: Effort & Inspection: normal respiratory effort Auscultation: clear to auscultation bilaterally Cardio: Rate: regular rate Rhythm: regular rhythm GI: Auscultation: normal bowel sounds Back/Spine/Pelvis: Cervical Spine: cervical ROM normal Thoracic/Lumbar Spine: thoraco-lumbar ROM normal Skin: General skin exam: normal color and turgor normal Trauma: abrasion ( right forehead and vertex of scalp) Neuro: General: moves all extremities, no meningeal signs, no focal motor deficits and CN's II-XI intact bilaterally Speech: normal speech Gait exam (Neuro): Normal gait present Other: GCS-15 Extrem: General: normal exam except as noted and no clubbing, cyanosis or edema Right upper extremity: Extremity exam: right hand tenderness of the 5th digit at the proximal phalanx, abnormal ROM of finger unable to extend of the 5th digit and other ( deformity at the PIP) Psych: Appearance: grossly normal and well kempt Mental Status: mental status grossly normal Affect: normal affect Attitude: cooperative Thought content: Yes Normal thought content present Course Vital Signs Vital signs: Vital Signs Temperature 36.9 C 09/03/21 14:10 Pulse Rate 80 09/03/21 14:10 Blood Pressure 113/64 09/03/21 14:10 Pulse Oximetry 97 09/03/21 14:10 Temperature 36.9 C 09/03/21 14:10 Pulse Rate 80 09/03/21 14:10 Blood Pressure 113/64 09/03/21 14:10 Pulse Oximetry 97 09/03/21 14:10 Procedures Orthopedic Joint Reduction Joint #1: Orthopedic Joint Reduction Date: 09/03/21 Side: right Joint Reduction Location: finger (5th PIP) Pre-Procedure Neuro Vascular Exam: normal Technique used: traction/counter-traction Post-reduction neuro exam: intact Post-reduction vascular: intact Post Reduction X-Ray Obtained: Yes Post Reduction X-Ray Results: reduced Splint Applied: No Patient Tolerated Procedure: well and no complications Discharge Plan Discharge Clinical Impression: Closed dislocation sharmila
[2021-09-03 14:55] VITALS: BP 107/46; PULSE 75; RESP 16; TEMP 36.8; O2SAT 97
== END 2021-09-03 14:58 | disposition home or self-care (01) ==
PROVIDERS: Emergency Provider Emergency Medicine; PCP Internal Medicine
DX: S63.256A Unspecified dislocation of right little finger, initial encounter (principal); S00.93XA Contusion of unspecified part of head, initial encounter; W19.XXXA Unspecified fall, initial encounter; E78.5 Hyperlipidemia, unspecified; I10 Essential (primary) hypertension; E11.9 Type 2 diabetes mellitus without complications; Z79.4 Long term (current) use of insulin
CPT/HCPCS: 26770; 70450; 73140; 99285

== ENCOUNTER 2021-11-20 22:38 | Emergency (ER) | payer MEDICARE, SELFPAY ==
--- NOTE | ~2021-11-20 | CT_ITS ---
EXAMINATION: CT brain wo con DATE: 11/20/2021 23:16 INDICATION: Accidental fall. Right head injury. TECHNIQUE: Computed tomography (CT) of the head was performed without intravenous contrast. The dose- length product was 605.33 mGy-cm. Automated exposure control and iterative reconstruction technique w ere employed. COMPARISON: CT dated 09/03/2021 FINDINGS: No ventriculomegaly or midline shift. Basilar cisterns are patent. There are scattered mode rate periventricular and subcortical white matter changes, most likely related to small vessel ischem ic disease (microangiopathy). There is intracranial atherosclerosis. Paranasal sinuses and mastoids a re pneumatized. No depressed skull fractures. There are changes of bilateral ocular lens replacement. IMPRESSION: 1. No acute intracranial abnormality. 2: Chronic age-related findings. Reviewed, dictated and finalized at location A.
[2021-11-20 22:45] VITALS: BP 156/80; PULSE 72; RESP 18; TEMP 36.2; O2SAT 98
--- NOTE | 2021-11-20 22:45 | ED.FALL ---
HPI - Fall General Chief Complaint: Fall Stated Complaint: head injury, elbow pain Time Seen by Provider: 11/20/21 22:45 Source: patient and family History of Present Illness HPI Narrative: 81-year-old male with a history of hypertension, dyslipidemia, colon cancer, dementia, CKD fell out of the bed 45 minutes ago andand presents to the ER with -- head injury-- right forehead hematoma measuring 2 cm with a superficial laceration on the hematoma -- left elbow skin tear. no loss of consciousness patient is not on any antithrombotics or anticoagulants. patient was in the ER on 09/03/2021 for a fall from a standing position and sustained a head injury and finger dislocation complaint: fall Onset (ago): minute(s) ( fell 45 minutes ago) Fall from: out of bed Fall witnessed: no Place fall occurred: home Loss of consciousness: none Prolonged down time: no Symptoms prior to fall: none Location of injury: head Location of injury - extremities: Right: elbow Severity: mild Severity scale (1-10): 1 Quality: aching Associated symptoms (after fall): denies Related Data Home Medications Medication Instructions Recorded Confirmed atorvastatin 20 mg tablet 20 mg PO DAILY 06/26/21 11/20/21 donepezil 10 mg tablet 10 mg PO HS 06/26/21 11/20/21 insulin glargine 100 unit/mL 30 unit subcut DAILY 11/20/21 11/20/21 subcutaneous solution (Lantus U-100 Insulin) Allergies Allergy/AdvReac Type Severity Reaction Status Date / Time No Known Allergies Allergy Unverified 09/03/21 14:14 Review of Systems Review of Systems: All systems reviewed & are unremarkable except as noted in HPI and below Constitutional: Constitutional: Reports as per HPI and Reports no additional constitutional complaints Eyes: Eyes: Reports as per HPI and Reports no additional eye complaints ENT: Reports system reviewed and no additional complaints, except as documented and Reports as per HPI Cardiovascular: Cardiovascular: Reports as per HPI and Reports no additional cardiovascular complaints Respiratory: Respiratory: Reports as per HPI and Reports no additional respiratory complaints Gastrointestinal: Gastrointestinal: Reports as per HPI and Reports no additional gastrointestinal complaints Genitourinary: Genitourinary: Reports no additional male genitourinary complaints and Reports as per HPI Musculoskeletal: Musculoskeletal: Reports no additional musculoskeletal complaints and Reports as per HPI Integumentary/Breasts: Skin/Breast: Reports system reviewed and no additional complaints, except as docu Comments: right forehead hematoma superficial laceration . Right elbow skin tear Neurologic: Reports system reviewed and no additional complaints, except as documented and Reports as per HPI Psychiatric: Psychiatric: Reports no additional psychiatric complaints and Reports as per HPI Endocrine: Endocrine: Reports no additional endocrine complaints and Reports as per HPI Hematologic/Lymphatic: Hematologic/Lymphatic: Reports no additional hematologic/lymphatic complaints and Reports as per HPI Allergic/Immunologic: Allergic/Immunologic: Reports no additional allergic/immunologic complaints and Reports as per HPI PMFSH Past Medical History Medical History Colon cancer Hyperlipidemia Hypertension Insulin-requiring or dependent type II diabetes mellitus Surgical History Surgical History H/O colectomy Social History Social History Smoking status: Former smoker Substance use: never Gender identity (if verbalized by the patient): Male Exam Const: General: no acute distress and alert Nutritional Appearance: thin Limitations: no limitations HENMT: Head: normal to inspection ( right forehead Hematoma measuring 2 cm. 1.5 cm superficial laceration on ) Ears: exter
[2021-11-21 01:13] VITALS: BP 157/66; PULSE 71; RESP 16; TEMP 36.3; O2SAT 98
== END 2021-11-21 01:15 | disposition home or self-care (01) ==
PROVIDERS: Emergency Provider Internal Medicine Critical Care Medicine; PCP Internal Medicine
DX: S09.90XA Unspecified injury of head, initial encounter (principal); S51.011A Laceration without foreign body of right elbow, initial encounter; W19.XXXA Unspecified fall, initial encounter; I10 Essential (primary) hypertension; E78.5 Hyperlipidemia, unspecified; Z85.9 Personal history of malignant neoplasm, unspecified; E11.9 Type 2 diabetes mellitus without complications; Z79.4 Long term (current) use of insulin; Z87.891 Personal history of nicotine dependence
CPT/HCPCS: 70450; 99284

== ENCOUNTER 2021-12-22 07:38 | Outpatient (CLI) | payer MEDICARE, SELFPAY ==
[2021-12-22 07:58] LABS: Appearance Urine Clear (Clear); Basophils Absolute Auto 0.02 K/mm3 (0.00-0.10); Basophils Percent Auto 0.3 % (0.0-1.0); Bilirubin Urine Negative (Negative); Color Urine Light Yellow (Yellow); Eosinophils Absolute Auto 0.12 K/mm3 (0.02-0.50); Eosinophils Percent Auto 2.1 % (1.0-6.0); Glucose Urine UA Negative (Negative); Hematocrit 40.2 % (37.0-46.0); Hemoglobin 13.8 g/dL (12.4-15.3); Immature Granulocyte Absolute 0.02 K/mm3 (0.00-0.00); Immature Granulocyte Percent A 0.3 % (0.0-0.0); Ketones Urine Negative (Negative); Leukocyte Esterase Ur Negative (Negative); Lymphocytes Absolute Auto 0.61 K/mm3 (1.10-4.50); Lymphocytes Percent Auto 10.6 % (18.0-42.0); Mean Corpuscular HGB Conc 34.3 g/dL (32.0-36.0); Mean Corpuscular Hemoglobin 31.2 pg (27.0-31.0); Mean Platelet Volume 9.6 fl (8.7-11.0); Neutrophils Absolute Auto 4.6 K/mm3 (1.7-7.2); Neutrophils Percent Auto 79.7 % (50.0-70.0); Nitrate Urine Negative (Negative); Platelet Count Result 179 K/mm3 (150-420); Protein Urine Negative (Negative); Red Blood Count 4.42 M/mm3 (4.70-6.10); Red Cell Distribution Width 11.7 % (11.6-14.4); Specific Grav Ur 1.025 (1.010-1.020); Urobilinogen Urine 0.2 mg/dL (0.2-1.0); White Blood Count 5.8 K/mm3 (4.8-10.8); pH Urine 5.5 (5.0-8.0)
[2021-12-22 08:02] LABS: Add Urine Microscopic? YES; Bacteria Urine Trace /hpf; Blood Urine Trace-Intact (Negative); Squamous Epithelial Cell Urine Rare /hpf (Few); WBC Urine None seen /hpf (0-3)
[2021-12-22 08:05] LABS: Hemoglobin A1C 7.6 % (<5.7)
[2021-12-22 08:26] LABS: Alanine Aminotransferase 21 U/L (16-63); Albumin Level 3.9 g/dL (3.4-5.0); Alkaline Phosphatase 77 U/L (46-116); Anion Gap 6 mmol/L (8-16); Aspartate Amino Transferase 21 U/L (15-37); Bilirubin,Total 0.6 mg/dL (0.00-1.00); Blood Urea Nitrogen 25 mg/dL (7-18); Calcium 8.8 mg/dL (8.5-10.1); Carbon Dioxide 29 mmol/L (21-32); Chloride 103 mmol/L (98-108); Cholesterol 138 mg/dL (0-200); Creatine Kinase 257 U/L (39-308); Estimated Glomerular Filt Rate 47; Free T4 Free Thyroxine 1.07 ng/dL (0.76-1.46); Glucose 123 mg/dL (70-99); HDL Direct 65 mg/dL (40-60); LDL Cholesterol Calculated 63 mg/dL (<130); Osmolality Calculated 291 mOsm/kg (285-295); Potassium 4.2 mmol/L (3.5-5.1); Sodium 138 mmol/L (136-145); Thyroid Stimulating Hormone 5.67 uIU/mL (0.36-3.74); Total Protein 7.3 g/dL (6.4-8.2); Triglycerides 51 mg/dL (0-150)
== END 2021-12-22 07:39 | disposition home or self-care (01) ==
LOC: CHSLAB 07:40
PROVIDERS: PCP Internal Medicine; Visit Provider Internal Medicine
DX: E78.2 Mixed hyperlipidemia (principal); E11.65 Type 2 diabetes mellitus with hyperglycemia; I12.9 Hypertensive chronic kidney disease with stage 1 through stage 4 chronic kidney disease, or unspecified chronic kidney disease; N18.30 Chronic kidney disease, stage 3 unspecified; R94.6 Abnormal results of thyroid function studies; I47.2 Ventricular tachycardia
CPT/HCPCS: 36415; 80053; 80061; 81001; 82550; 83036; 84439; 84443; 85025

== ENCOUNTER 2022-03-21 16:54 | Emergency (ER) | payer MEDICARE, SELFPAY ==
--- NOTE | ~2022-03-21 | XR_ITS ---
EXAMINATION: XR chest 1V portable DATE: 03/21/2022 18:55 INDICATION: Nausea and vomiting TECHNIQUE: AP view of the chest was obtained on 2 radiographs. COMPARISON: Chest radiograph dated 11/21/2020 FINDINGS: The lungs remain clear with no focal airspace opacities, pulmonary edema, pleural effusion or pneumot horax. The cardiomediastinal silhouette is normal. Likely mitral annular calcification projecting ove r the heart. IMPRESSION: 1. No acute cardiopulmonary disease. Reviewed, dictated and finalized at location A.
--- NOTE | ~2022-03-21 | CT_ITS ---
EXAMINATION: CT brain wo con DATE: 03/21/2022 19:07 INDICATION: Confusion and tremors TECHNIQUE: Computed tomography (CT) of the head was performed without intravenous contrast. Sagittal and coronal reconstructions were performed. The mA was adjusted according to patient size. Iterative reconstruction technique was employed. The dose-length product was 681.00 mGy-cm. COMPARISON: head CT dated 11/20/2021 FINDINGS: No acute intracranial hemorrhage, acute infarction or abnormal extra axial fluid collection. There is moderate scattered white matter hypoattenuation consistent with chronic small vessel ischemic diseas e. Symmetric prominence of the sulci and ventricles consistent with mild to moderate age-appropriate diffuse cerebral volume loss. No mass/mass effect. Changes of bilateral intraocular lens replacement. The orbits, paranasal sinuses and mastoid air cells are normal. Intracranial calcified cerebral athe rosclerosis is noted. IMPRESSION: 1. No acute intracranial process. 2. Age-related changes including mild to moderate diffuse volume loss and moderate scattered white ma tter hypoattenuation consistent with chronic small vessel ischemic disease. Reviewed, dictated and finalized at location A. IMPRESSION: 1. No acute intracranial process. 2. Age-related changes including mild to moderate diffuse volume loss and moder ate scattered white matter hypoattenuation consistent with chronic small vessel ischemic disease.
[2022-03-21 17:45] VITALS: BP 121/69; PULSE 76; RESP 20; TEMP 36.3; O2SAT 99
[2022-03-21 17:47] LABS: Glucose Point of Care 251 mg/dl (65-105)
[2022-03-21 18:26] LABS: Basophils Absolute Auto 0.01 K/mm3 (0.00-0.10); Basophils Percent Auto 0.1 % (0.0-1.0); Hematocrit 37.2 % (37.0-46.0); Hemoglobin 12.7 g/dL (12.4-15.3); Immature Granulocyte Absolute 0.02 K/mm3 (0.00-0.00); Immature Granulocyte Percent A 0.3 % (0.0-0.0); Lymphocytes Absolute Auto 0.31 K/mm3 (1.10-4.50); Lymphocytes Percent Auto 4.3 % (18.0-42.0); Mean Corpuscular HGB Conc 34.1 g/dL (32.0-36.0); Mean Corpuscular Hemoglobin 30.7 pg (27.0-31.0); Mean Corpuscular Volume 89.9 fL (78.0-102.0); Mean Platelet Volume 9.6 fl (8.7-11.0); Monocytes Absolute Auto 0.21 K/mm3 (0.10-0.90); Monocytes Percent Auto 2.9 % (2.0-11.0); Neutrophils Absolute Auto 6.7 K/mm3 (1.7-7.2); Neutrophils Percent Auto 92.4 % (50.0-70.0); Platelet Count Result 184 K/mm3 (150-420); Red Blood Count 4.14 M/mm3 (4.70-6.10); Red Cell Distribution Width 12.5 % (11.6-14.4); White Blood Count 7.2 K/mm3 (4.8-10.8)
[2022-03-21 18:49] LABS: Alanine Aminotransferase 19 U/L (16-63); Albumin Level 3.7 g/dL (3.4-5.0); Alkaline Phosphatase 85 U/L (46-116); Anion Gap 7 mmol/L (8-16); Aspartate Amino Transferase 14 U/L (15-37); Bilirubin,Total 0.4 mg/dL (0.00-1.00); Blood Urea Nitrogen 23 mg/dL (7-18); Carbon Dioxide 29 mmol/L (21-32); Chloride 103 mmol/L (98-108); Estimated Glomerular Filt Rate 46; Glucose 269 mg/dL (70-99); Lipase 111 U/L (73-393); NT Pro B Type Natriuretic Pept 596 pg/mL (0-450); Osmolality Calculated 300 mOsm/kg (285-295); Potassium 4.9 mmol/L (3.5-5.1); Sodium 139 mmol/L (136-145); Total Protein 7.1 g/dL (6.4-8.2)
[2022-03-21] MEDS: SODIUM CHLORIDE 0.9% IV 1,000 ML 999 ML IV CONT (19:17)
[2022-03-21] MEDS: ONDANSETRON HCL ODT 4 MG TABLET PO (19:18)
--- NOTE | 2022-03-21 19:20 | ED.NAVMDI ---
HPI - Nausea/Vomiting/Diarrhea General Chief complaint: Nausea/Vomiting/Diarrhea Stated complaint: VOMITING, TREMORS Time Seen by Provider: 03/21/22 17:45 Source: patient and family Mode of arrival: wheelchair History of Present Illness HPI Narrative: this is 81-year-old gentleman was brought in by family patient appears anxious and has been having tremors along with the anxiety has a history of diabetes hypertension hyperlipidemia and dementia, currently there is no fever chills had an episode of nausea and received Zofran and some IV fluids. The patient has afebrile his vital signs are stable is currently on Aricept for dementia but is having a increasing anxiety which leads to tremors. The patient recently finished a course of antibiotics for urinary tract infection proximally 3 days ago. Currently there is no dysuria no shortness of breath no hematuria no fever chills no abdominal pain. MD elicited complaint: nausea Onset (ago): hour(s) Severity: mild Related Data Home Medications Medication Instructions Recorded Confirmed atorvastatin 20 mg tablet 20 mg PO DAILY 06/26/21 03/21/22 donepezil 10 mg tablet 10 mg PO HS 06/26/21 03/21/22 insulin glargine 100 unit/mL 30 unit subcut DAILY 11/20/21 03/21/22 subcutaneous solution (Lantus U-100 Insulin) Allergies Allergy/AdvReac Type Severity Reaction Status Date / Time No Known Allergies Allergy Unverified 09/03/21 14:14 Review of Systems Review of Systems: All systems reviewed & are unremarkable except as noted in HPI and below PMFSH Past Medical History Medical History Colon cancer Hyperlipidemia Hypertension Insulin-requiring or dependent type II diabetes mellitus Surgical History Surgical History H/O colectomy Social History Social History Smoking status: Former smoker Substance use: never Gender identity (if verbalized by the patient): Male Exam Const: General: healthy appearing Nutritional Appearance: well nourished Limitations: no limitations HENMT: Head: normal to inspection Face and sinus: normal facial exam Mouth: Yes Normal oral and palatal mucosa present Teeth and gingiva: dentition normal Eyes: Conjunctivae: conjunctivae normal EOM: EOMs intact bilaterally Direct Ophthalmoscopy: no photophobia Neck: Neck: normal visual inspection, no lymphadenopathy and no meningeal signs Chest: Chest palpation & inspection: normal inspection of the chest Resp: Effort & Inspection: normal respiratory effort Auscultation: clear to auscultation bilaterally Cardio: Rate: regular rate Rhythm: regular rhythm GI: GI Palp: Yes Soft to palpation Back/Spine/Pelvis: Back: no CVA tenderness Skin: General skin exam: normal color Rashes: no rashes Neuro: General: moves all extremities, no meningeal signs and no focal motor deficits Cranial nerves: Yes Nystagmus not present Speech: normal speech Extrem: General: normal to inspection Psych: Mental Status: mental status grossly normal Affect: Anxious affect present Course Course Emergency Course: CT scan chest x-ray reviewed with patient and family with no acute findings labs reviewed, patient received IV fluids and Zofran, appears anxious and will give him a dose Xanax 0.5mg p.o. 1 time. MDM - Nausea/Vomiting/Diarrhea Lab Data Result diagrams: 03/21/22 18:22 03/21/22 18:22 Labs: Lab Results 03/21/22 03/21/22 03/21/22 Range/Units 17:45 18:22 18:22 WBC 7.2 (4.8-10.8) K/mm3 RBC 4.14 L (4.70-6.10) M/mm3 Hgb 12.7 (12.4-15.3) g/dL Hct 37.2 (37.0-46.0) % MCV 89.9 (78.0-102.0) fL MCH 30.7 (27.0-31.0) pg MCHC 34.1 (32.0-36.0) g/dL RDW 12.5 (11.6-14.4) % Plt Count 184 (150-420) K/mm3 MPV 9.6 (8.7-11.0) fl Immature Gran % (Auto) 0.3 H
[2022-03-21] MEDS: ALPRAZolam (*CRX) 0.5 MG TABLET PO (19:27)
--- NOTE | 2022-03-21 19:33 | PC.NURSE ---
1739 CALLED TO LOBBY FROM REGISTRATION STAFF WHO WAS YELLING IN ER THAT PT WAS HAVING A SEIZURE. RN DIRECTLY TO THE LOBBY. PT ALERT, NO EVIDENCE OF SEIZURE. PT SHAKING WHEELCHAIR ARMS VIOLENTLY, I WANT TO GO HOME , PT HAS TREMORS. DENIES SEIZURE ACTIVITY NOW OR IN THE PAST. NO HISTORY OF SEIZURES. EXPLAINED TO AND PT, ER FULL BUT WILL MOVE PT TO OPEN A ROOM. 1744 PT TO ROOM WITH . PT REMAINS ALERT, NO POST DICTAL EVIDENCE OF SEIZURE , NO INCONTINENCE.
--- NOTE | 2022-03-21 19:37 | PC.NURSE ---
1845 REPORT TO MARIALUISA BARDALES. PT MOVED TO ROOM 2 FOR DIRECT SUPERVISION OF NURSING STAFF FAMILY WAS OUT OF ROOM
[2022-03-21 19:40] VITALS: BP 119/67; PULSE 80; RESP 20; TEMP 36.6; O2SAT 99
--- NOTE | 2022-04-02 13:23 | PC.NURSE ---
BLOOD CULTURE FINAL RESULTS X2 NO GROWTH AFTER 5 DAYS
== END 2022-03-21 19:45 | disposition home or self-care (01) ==
PROVIDERS: Emergency Provider Emergency Medicine; PCP Internal Medicine
DX: F41.9 Anxiety disorder, unspecified (principal); R11.2 Nausea with vomiting, unspecified; E78.5 Hyperlipidemia, unspecified; I10 Essential (primary) hypertension; E11.9 Type 2 diabetes mellitus without complications; Z79.4 Long term (current) use of insulin; Z85.038 Personal history of other malignant neoplasm of large intestine
CPT/HCPCS: 36415; 70450; 71045; 80053; 82948; 83690; 83880; 85025; 87040; 99284; A9270; J7030

== ENCOUNTER 2022-05-09 07:18 | Outpatient (CLI) | payer MEDICARE, SELFPAY ==
[2022-05-09 07:32] LABS: Appearance Urine Clear (Clear); Basophils Absolute Auto 0.02 K/mm3 (0.00-0.10); Basophils Percent Auto 0.4 % (0.0-1.0); Bilirubin Urine Negative (Negative); Eosinophils Absolute Auto 0.05 K/mm3 (0.02-0.50); Eosinophils Percent Auto 0.9 % (1.0-6.0); Glucose Urine UA Negative (Negative); Hematocrit 41.1 % (37.0-46.0); Hemoglobin 13.8 g/dL (12.4-15.3); Immature Granulocyte Absolute 0.01 K/mm3 (0.00-0.00); Immature Granulocyte Percent A 0.2 % (0.0-0.0); Ketones Urine Negative (Negative); Leukocyte Esterase Ur Negative (Negative); Lymphocytes Absolute Auto 0.56 K/mm3 (1.10-4.50); Lymphocytes Percent Auto 10.4 % (18.0-42.0); Mean Corpuscular HGB Conc 33.6 g/dL (32.0-36.0); Mean Corpuscular Hemoglobin 31.1 pg (27.0-31.0); Mean Corpuscular Volume 92.6 fL (78.0-102.0); Mean Platelet Volume 9.9 fl (8.7-11.0); Monocytes Percent Auto 5.6 % (2.0-11.0); Neutrophils Absolute Auto 4.4 K/mm3 (1.7-7.2); Neutrophils Percent Auto 82.5 % (50.0-70.0); Nitrate Urine Negative (Negative); Platelet Count Result 202 K/mm3 (150-420); Protein Urine Negative (Negative); Red Blood Count 4.44 M/mm3 (4.70-6.10); Red Cell Distribution Width 12.2 % (11.6-14.4); Urobilinogen Urine 0.2 mg/dL (0.2-1.0); White Blood Count 5.4 K/mm3 (4.8-10.8)
[2022-05-09 07:36] LABS: Color Urine Light Yellow (Yellow)
[2022-05-09 07:37] LABS: Add Urine Microscopic? YES; Bacteria Urine Trace /hpf; Blood Urine Trace-Intact (Negative); RBC Urine None seen /hpf (0-2); WBC Urine None seen /hpf (0-3)
[2022-05-09 07:41] LABS: Creatinine Urine 110.05 mg/dL (40-278); MALB Creatinine Ratio 11.8 mg/g (0-30); Microalbumin Urine Random < 13.0 mg/L
[2022-05-09 07:43] LABS: Hemoglobin A1C 6.4 % (<5.7)
[2022-05-09 08:14] LABS: Alanine Aminotransferase 18 U/L (16-63); Alkaline Phosphatase 82 U/L (46-116); Anion Gap 7 mmol/L (8-16); Aspartate Amino Transferase 16 U/L (15-37); Bilirubin,Total 0.6 mg/dL (0.00-1.00); Blood Urea Nitrogen 31 mg/dL (7-18); Carbon Dioxide 30 mmol/L (21-32); Chloride 105 mmol/L (98-108); Cholesterol 187 mg/dL (0-200); Estimated Glomerular Filt Rate 42; Free T4 Free Thyroxine 1.04 ng/dL (0.76-1.46); Glucose 102 mg/dL (70-99); HDL Direct 67 mg/dL (40-60); LDL Cholesterol Calculated 111 mg/dL (<130); Osmolality Calculated 300 mOsm/kg (285-295); Potassium 4.4 mmol/L (3.5-5.1); Sodium 142 mmol/L (136-145); Thyroid Stimulating Hormone 5.04 uIU/mL (0.36-3.74); Total Protein 7.2 g/dL (6.4-8.2); Triglycerides 46 mg/dL (0-150)
[2022-05-09 11:49] LABS: Creatine Kinase 60 U/L (39-308)
== END 2022-05-09 07:19 | disposition home or self-care (01) ==
LOC: CHSLAB 07:20
PROVIDERS: PCP Internal Medicine; Visit Provider Internal Medicine
DX: E03.4 Atrophy of thyroid (acquired) (principal); I12.9 Hypertensive chronic kidney disease with stage 1 through stage 4 chronic kidney disease, or unspecified chronic kidney disease; N18.30 Chronic kidney disease, stage 3 unspecified; G30.1 Alzheimer's disease with late onset; E11.65 Type 2 diabetes mellitus with hyperglycemia
CPT/HCPCS: 36415; 80053; 80061; 81001; 82043; 82550; 83036; 84439; 84443; 85025

== ENCOUNTER 2022-05-11 18:14 | Emergency (ER) | payer MEDICARE, SELFPAY ==
--- NOTE | ~2022-05-11 | CT_ITS ---
EXAMINATION: CT brain wo con DATE: 05/11/2022 20:57 INDICATION: FALL/LEFT EYE INJURY . TECHNIQUE: Computed tomography (CT) of the head was performed without intravenous contrast. The mA wa s adjusted according to patient size. Iterative reconstruction technique was employed. The dose-lengt h product was 681.00 mGy-cm. COMPARISON: 03/21/2022 FINDINGS: No acute intracranial hemorrhage or extra-axial fluid collection. No hydrocephalus, mass, or herniation. No acute ischemic infarct. Unremarkable dural venous sinus attenuation. No acute osseous abnormality. The aerated spaces are clear. Moderate atrophy and chronic white matter change. Atherosclerotic intracranial calcification. Bilater al lens replacements. IMPRESSION: No acute intracranial process. Reviewed, dictated and finalized at location K. [employer]
--- NOTE | ~2022-05-11 | CT_ITS ---
EXAMINATION: CT facial & cervical spine wo DATE: 05/11/2022 20:57 INDICATION: fall with left nilton-orbital swelling TECHNIQUE: Computed tomography (CT) of the maxillofacial region and cervical spine was performed with out intravenous contrast. Automated exposure control and iterative reconstruction technique were empl oyed. The dose-length product was 358.74 mGy-cm. COMPARISON: None FINDINGS: CERVICAL: Vertebral Body Alignment: Intact. Craniocervical and atlantoaxial alignment: Mild degenerative change. Alignment intact. Osseous structures/fracture: No evidence of a lytic or blastic process in the visualized spine. No e vidence of acute fracture. C4-5 fusion. Cervical soft tissues: The paraspinal soft tissues planes are maintained. Degenerative changes: Multilevel degenerative disc disease. Multilevel moderate and severe bilateral neural foraminal narrowing. Multilevel moderate central canal narrowing. FACE: Soft Tissues: Left periorbital soft tissue swelling. Facial bones: No acute fracture. No lytic or blastic process. Eyes: The globes are intact. The soft tissue planes of the orbits are maintained. Bilateral lens re placements. Paranasal Sinuses: The visualized aerated spaces are clear. Foreign Bodies: No radiopaque foreign bodies. Other Findings: None. IMPRESSION: No acute fracture or traumatic malalignment in the cervical spine. No acute facial bone fracture. Reviewed, dictated and finalized at location K. ICER IMPRESSION: No acute fracture or traumatic malalignment in the cervical spine. No acute fac ial bone fracture.
[2022-05-11 19:00] VITALS: BP 119/64; PULSE 72; RESP 20; TEMP 36.4; O2SAT 97
--- NOTE | 2022-05-11 20:21 | ED.URI ---
HPI - URI/Sore Throat General Chief Complaint: Fall Stated Complaint: fell a few hours ago;L side head bump Related Data Home Medications Medication Instructions Recorded Confirmed atorvastatin 20 mg tablet 20 mg PO DAILY 06/26/21 05/11/22 donepezil 10 mg tablet 10 mg PO HS 06/26/21 05/11/22 insulin glargine 100 unit/mL 35 unit subcut DAILY 11/20/21 05/11/22 subcutaneous solution (Lantus U-100 Insulin) alprazolam 0.5 mg tablet (Xanax) 0.25 mg PO TID PRN anxiety 05/11/22 05/11/22 risperidone 0.25 mg tablet 0.25 mg PO DAILY 05/11/22 05/11/22 Allergies Allergy/AdvReac Type Severity Reaction Status Date / Time No Known Allergies Allergy Unverified 09/03/21 14:14 [facility] Past Medical History Medical History Colon cancer Hyperlipidemia Hypertension Insulin-requiring or dependent type II diabetes mellitus Surgical History Surgical History H/O colectomy Social History Social History Smoking status: Former smoker Substance use: never Gender identity (if verbalized by the patient): Male Course Vital Signs Vital signs: Vital Signs Temperature 36.4 C 05/11/22 19:00 Pulse Rate 72 05/11/22 19:00 Respiratory Rate 20 05/11/22 19:00 Blood Pressure 119/64 05/11/22 19:00 Pulse Oximetry 97 05/11/22 19:00 Oxygen Delivery Room Air 05/11/22 19:00 Temperature 36.4 C 05/11/22 19:00 Pulse Rate 72 05/11/22 19:00 Respiratory Rate 20 05/11/22 19:00 Blood Pressure 119/64 05/11/22 19:00 Pulse Oximetry 97 05/11/22 19:00 Oxygen Delivery Room Air 05/11/22 19:00 Discharge Plan Discharge Prescriptions: No Action atorvastatin 20 mg Tablet 20 mg PO DAILY donepezil 10 mg Tablet 10 mg PO HS insulin glargine [Lantus U-100 Insulin] 100 unit/mL solution 35 unit SUBCUT DAILY risperidone 0.25 mg tablet 0.25 mg PO DAILY alprazolam [Xanax] 0.5 mg tablet 0.25 mg PO TID PRN (Reason: anxiety) Follow-up/Referrals: Ko Nunez MD [Primary Care Provider] -
--- NOTE | 2022-05-11 20:23 | ED.FALL ---
HPI - Fall General Chief Complaint: Fall Stated Complaint: fell a few hours ago;L side head bump Source: family Mode of arrival: ambulatory History of Present Illness HPI Narrative: 81-year-old with a history of diabetes mellitus, dyslipidemia, colon cancer status post colectomy, Alzheimer's disease was placed in respite care at a [facility]. The patient got agitated and attempted to walk out of the nursing when he fell forwards 2 hours ago. No loss of consciousness. The fall was witnessed. He has left periorbital bruising. He denies any headache. No nausea/ vomiting. No seizure activity. The history is provided by his . complaint: fall Onset (ago): hour(s) ( 2 hours ago) Fall from: standing Fall witnessed: yes, by living facility staff Place fall occurred: [facility] Loss of consciousness: none Prolonged down time: no Symptoms prior to fall: none Location of injury: face Associated symptoms (after fall): denies Related Data Home Medications Medication Instructions Recorded Confirmed atorvastatin 20 mg tablet 20 mg PO DAILY 06/26/21 05/11/22 donepezil 10 mg tablet 10 mg PO HS 06/26/21 05/11/22 insulin glargine 100 unit/mL 35 unit subcut DAILY 11/20/21 05/11/22 subcutaneous solution (Lantus U-100 Insulin) alprazolam 0.5 mg tablet (Xanax) 0.25 mg PO TID PRN anxiety 05/11/22 05/11/22 risperidone 0.25 mg tablet 0.25 mg PO DAILY 05/11/22 05/11/22 Allergies Allergy/AdvReac Type Severity Reaction Status Date / Time No Known Allergies Allergy Unverified 09/03/21 14:14 Review of Systems Review of Systems: All systems reviewed & are unremarkable except as noted in HPI and below Constitutional: Constitutional: Reports as per HPI and Reports no additional constitutional complaints Eyes: Eyes: Reports as per HPI and Reports no additional eye complaints Comments: left periorbital bruising. ENT: Reports system reviewed and no additional complaints, except as documented and Reports as per HPI Cardiovascular: Cardiovascular: Reports as per HPI and Reports no additional cardiovascular complaints Respiratory: Respiratory: Reports as per HPI and Reports no additional respiratory complaints Gastrointestinal: Gastrointestinal: Reports as per HPI and Reports no additional gastrointestinal complaints Genitourinary: Genitourinary: Reports no additional male genitourinary complaints and Reports as per HPI Musculoskeletal: Musculoskeletal: Reports no additional musculoskeletal complaints and Reports as per HPI Integumentary/Breasts: Skin/Breast: Reports system reviewed and no additional complaints, except as docu and Reports as per HPI Neurologic: Reports system reviewed and no additional complaints, except as documented and Reports as per HPI Psychiatric: Psychiatric: Reports as per HPI Comments: Patient is confused. The patient is anxious. This is normal baseline According to his . Endocrine: Endocrine: Reports no additional endocrine complaints and Reports as per HPI Hematologic/Lymphatic: Hematologic/Lymphatic: Reports no additional hematologic/lymphatic complaints and Reports as per HPI Allergic/Immunologic: Allergic/Immunologic: Reports no additional allergic/immunologic complaints and Reports as per HPI PMFSH Past Medical History Medical History Colon cancer Hyperlipidemia Hypertension Insulin-requiring or dependent type II diabetes mellitus Surgical History Surgical History H/O colectomy Social History Social History Smoking status: Former smoker Substance use: never Gender identity (if verbalized by the patient): Male Exam Const: General: healthy appearing, no acute distress and confusion Nutritional Appearance: well nourished Limitations: no limitations HENMT: Head: normal to inspecti
[2022-05-11 21:50] VITALS: BP 120/78; PULSE 87; RESP 18; TEMP 36.6; O2SAT 99
== END 2022-05-11 21:52 ==
PROVIDERS: Emergency Provider Internal Medicine Critical Care Medicine; PCP Internal Medicine
DX: S09.93XA Unspecified injury of face, initial encounter (principal); S00.12XA Contusion of left eyelid and periocular area, initial encounter; G30.9 Alzheimer's disease, unspecified; F02.80 Dementia in other diseases classified elsewhere, unspecified severity, without behavioral disturbance, psychotic disturbance, mood disturbance, and anxiety; W19.XXXA Unspecified fall, initial encounter; E11.9 Type 2 diabetes mellitus without complications; E78.5 Hyperlipidemia, unspecified; Z85.038 Personal history of other malignant neoplasm of large intestine; Z87.891 Personal history of nicotine dependence
CPT/HCPCS: 70450; 70486; 72125; 99284

== ENCOUNTER 2022-07-30 11:19 | Emergency (ER) | payer MEDICARE, SELFPAY ==
[2022-07-30] VITALS (34 sets, daily range): BP systolic 87–114; BP diastolic 45–72; PULSE 77–156; RESP 18; TEMP 37.1; O2SAT 87–98
--- NOTE | ~2022-07-30 | XR_ITS ---
EXAMINATION: XR chest 1V portable DATE: 07/30/2022 12:34 INDICATION: Shortness of breath. TECHNIQUE: A single frontal view of the chest was obtained. COMPARISON: Chest single view 03/21/2022 FINDINGS: The chest demonstrates clear lungs without pneumonia, pleural effusion, or pneumothorax. Th e heart size is normal. IMPRESSION: 1. No acute cardiopulmonary disease. Reviewed, dictated and finalized at location A. RECONDITIONER
--- NOTE | 2022-07-30 11:39 | ECG_ITS ---
Measurements Intervals [place] Rate: 155 P: 106 DE: 114 QRS: -84 QRSD: 126 T: 59 QT: 264 QTc: 424 Interpretive Statements ATRIAL FLUTTER WITH RAPID VENTRICULAR RESPONSE RIGHT BUNDLE-BRANCH BLOCK ABNORMAL ECG COMPARED TO ECG 06/26/2021 10:50:05 ATRIAL FLUTTER IS NOW PRESENT Electronically Signed On 07-31-2022 14:34:40 PROFESS[employer] OF [employer] by Elieser Byrd M.D.
--- NOTE | 2022-07-30 11:39 | ED.SOB ---
HPI - SOB/Dyspnea General Chief Complaint: Shortness of Breath/Dyspnea Stated Complaint: SOB Time Seen by Provider: 07/30/22 11:21 Source: patient, family and RN notes reviewed Mode of arrival: ambulatory Limitations: no limitations History of Present Illness HPI Narrative: patient was recently diagnosed with COVID 3 days ago on Friday. His tested positive 5 days ago. In the last 2 days has had progressive shortness of breath came to the hospital because it gets worse with exertion and now is having some shortness of breath the rest. Denies any chest pain associated with this. Patient does have chronic dementia. He has not taking anything for his COVID. MD elicited complaint: shortness of breath Onset (ago): day(s) (today) Context: recent illness ( COVID) Timing: constant and progressively worsening Severity: moderate Exacerbating factors: exertion Relieving factors: rest Associated symptoms: palpitations Treatment prior to arrival: none Related Data Home oxygen amount: none Home Medications Medication Instructions Recorded Confirmed donepezil 10 mg tablet 10 mg PO HS 06/26/21 07/30/22 insulin glargine 100 unit/mL 35 unit subcut DAILY 11/20/21 07/30/22 subcutaneous solution (Lantus U-100 Insulin) alprazolam 0.5 mg tablet (Xanax) 0.25 mg PO TID PRN anxiety 05/11/22 07/30/22 risperidone 0.25 mg tablet 0.25 mg PO DAILY 05/11/22 07/30/22 Allergies Allergy/AdvReac Type Severity Reaction Status Date / Time No Known Allergies Allergy Verified 07/30/22 12:03 Review of Systems Review of Systems: All systems reviewed & are unremarkable except as noted in HPI and below PMFSH Past Medical History Medical History (Updated 07/30/22 @ 14:12 by Cristiano Tsang MD) Colon cancer Dementia Hyperlipidemia Hypertension Insulin-requiring or dependent type II diabetes mellitus Surgical History Surgical History H/O colectomy Social History Social History Smoking status: Former smoker Substance use: never Gender identity (if verbalized by the patient): Male Exam Const: General: alert and ill appearing acutely and chronically Nutritional Appearance: well nourished Orientation/consciousness: patient oriented x3 Limitations: no limitations HENMT: Head: normal to inspection Ears: external ears normal Face/Nose/Sinus: Normal external nose present Face and sinus: normal facial exam Mouth: Yes moist mucous membranes Eyes: Conjunctivae: conjunctivae normal Pupils: Equal, round and reactive pupils present EOM: EOMs intact bilaterally Neck: Neck: normal visual inspection Resp: Effort & Inspection: labored Auscultation: crackles bilateral at the base (moderate) Cardio: Rate: tachycardic Rhythm: abnormal rhythm irregularly irregular GI: GI Palp: Yes Soft to palpation and No Tenderness to palpation present (GI) Auscultation: normal bowel sounds Back/Spine/Pelvis: Cervical Spine: cervical ROM normal Thoracic/Lumbar Spine: thoraco-lumbar ROM normal Skin: General skin exam: normal color Rashes: no rashes Neuro: General: moves all extremities, no focal motor deficits and CN's II-XI intact bilaterally Speech: normal speech Gait exam (Neuro): Normal gait present Other: Pleasantly confused Extrem: General: edema bilateral ( trace) Psych: Mental Status: mental status grossly normal Affect: normal affect Attitude: cooperative Course Course Emergency Course: Patient given 20 mg of Cardizem IV push and had significant improvement in his heart rate to the high 90s low 100s. His breathing significantly improved. He was then started on a Cardizem drip at 10 mg an hour. This kept his heart rate in the 80s. His blood pressure was mildly hypotensive I am hesitant to give him any excess fluids due to his congestive heart failure. His elevated B nitrate peptide and troponin may be secondary to
[2022-07-30] MEDS: dilTIAZem HCl INJ 25 MG/5 ML VIAL 20 MG IV PUSH (11:41)
[2022-07-30] MEDS: dilTIAZem 100 MG/100 ML 100 MG/100 ML BAG 10 MG IV CONT (11:54)
--- NOTE | 2022-07-30 12:01 | ECG_ITS ---
Measurements Intervals [place] Rate: 81 P: AR: 0 QRS: -67 QRSD: 116 T: 56 QT: 364 QTc: 423 Interpretive Statements ATRIAL FLUTTER WITH VARIABLE AV BLOCK WITH ABERRANT CONDUCTION OR VENTRICULAR PREMATURE COMPLEXES RIGHT BUNDLE BRANCH BLOCK LEFT ANTERIOR FASCICULAR BLOCK ABNORMAL ECG COMPARED TO ECG 07/30/2022 11:36:06 HEART RATE HAS DECREASED Electronically Signed On 07-31-2022 14:35:22 ICT DEVELOPMENT MANAGER by Elieser Byrd M.D.
[2022-07-30 12:07] LABS: Basophils Absolute Auto 0.01 K/mm3 (0.00-0.10); Basophils Percent Auto 0.1 % (0.0-1.0); Eosinophils Absolute Auto 0.01 K/mm3 (0.02-0.50); Eosinophils Percent Auto 0.1 % (1.0-6.0); Hematocrit 37.9 % (37.0-46.0); Hemoglobin 12.7 g/dL (12.4-15.3); Immature Granulocyte Absolute 0.04 K/mm3 (0.00-0.00); Immature Granulocyte Percent A 0.4 % (0.0-0.0); Lymphocytes Absolute Auto 0.29 K/mm3 (1.10-4.50); Lymphocytes Percent Auto 2.6 % (18.0-42.0); Mean Corpuscular HGB Conc 33.5 g/dL (32.0-36.0); Mean Corpuscular Hemoglobin 30.6 pg (27.0-31.0); Mean Corpuscular Volume 91.3 fL (78.0-102.0); Mean Platelet Volume 9.7 fl (8.7-11.0); Monocytes Absolute Auto 0.78 K/mm3 (0.10-0.90); Monocytes Percent Auto 6.9 % (2.0-11.0); Neutrophils Absolute Auto 10.2 K/mm3 (1.7-7.2); Neutrophils Percent Auto 89.9 % (50.0-70.0); Platelet Count Result 174 K/mm3 (150-420); Red Blood Count 4.15 M/mm3 (4.70-6.10); Red Cell Distribution Width 11.9 % (11.6-14.4); White Blood Count 11.3 K/mm3 (4.8-10.8)
[2022-07-30 12:09] LABS: Glucose Point of Care 171 mg/dl (65-105)
--- NOTE | 2022-07-30 12:28 | PC.NURSE ---
PT HR IMPROVED WITH CARDIZEM INJECTION, WAS THEN PLACED ON DRIP PER ORDER. PT RESP STATUS IMPROVED ONCE HIS HR IMPROVED. REPORTS PT IS DNR. PT REQUESTED WATER, IT WAS PROVIDED. PT IS CONFUSED, HOWEVER REPORTS NORMAL FOR PT. PT IS RELAXED, CALM AT THIS TIME. PT IS AWAITING RESULTS. WILL CONTINUE TO MONITOR.
[2022-07-30 12:30] LABS: Alanine Aminotransferase 17 U/L (16-63); Albumin Level 3.1 g/dL (3.4-5.0); Alkaline Phosphatase 65 U/L (46-116); Anion Gap 7 mmol/L (8-16); Aspartate Amino Transferase 17 U/L (15-37); Bilirubin,Total 0.7 mg/dL (0.00-1.00); Blood Urea Nitrogen 31 mg/dL (7-18); Calcium 8.4 mg/dL (8.5-10.1); Carbon Dioxide 27 mmol/L (21-32); Chloride 105 mmol/L (98-108); Estimated CRCL calculation 29 ml/min; Estimated Glomerular Filt Rate 40; Glucose 177 mg/dL (70-99); Magnesium 1.8 mg/dL (1.8-2.4); NT Pro B Type Natriuretic Pept 4135 pg/mL (0-450); Osmolality Calculated 298 mOsm/kg (285-295); Potassium 4.6 mmol/L (3.5-5.1); Sodium 139 mmol/L (136-145); Total Protein 6.7 g/dL (6.4-8.2)
[2022-07-30 12:31] LABS: Troponin I 82.3 ng/L (0.00-60.4)
--- NOTE | 2022-07-30 12:31 | PC.NURSE ---
ELEVATED TROPONIN 82.3 CALLED BY LAB, ERP IS NOTIFIED.
--- NOTE | 2022-07-30 12:57 | PC.NURSE ---
PT IS AWAITING RESULTS AND ERP DECISION. ERP IS AWARE OF BP AT THIS TIME. AT BEDSIDE. WILL CONTINUE TO MONITOR.
--- NOTE | 2022-07-30 14:14 | PC.NURSE ---
PT HAS BEEN ACCEPTED TO [facility] ROOM [address] MIRELES. ATTEMPTED TO CALL REPORT, RN IS TO CALL BACK. IS AWARE OF PLAN OF CARE.
== END 2022-07-30 15:23 | disposition short-term general hospital (02) ==
PROVIDERS: Emergency Provider Emergency Medicine; PCP Internal Medicine
DX: U07.1 COVID-19 (principal); I11.0 Hypertensive heart disease with heart failure; I50.9 Heart failure, unspecified; F03.90 Unspecified dementia, unspecified severity, without behavioral disturbance, psychotic disturbance, mood disturbance, and anxiety; E78.5 Hyperlipidemia, unspecified; E11.9 Type 2 diabetes mellitus without complications; Z85.038 Personal history of other malignant neoplasm of large intestine
CPT/HCPCS: 36415; 71045; 80053; 82948; 83735; 83880; 84484; 85025; 93005; 96365; 96366; 99285

== ENCOUNTER 2022-07-30 17:32 | Observation (INO) | payer MEDICARE, SELFPAY ==
--- NOTE | ~2022-07-30 | CT_ITS ---
EXAMINATION: CTA chest PE protocol DATE: 07/30/2022 20:22 INDICATION: Tachycardia. COVID. TECHNIQUE: Computed tomography (CT) pulmonary angiogram of the chest was performed with 100 mL Omnipa que-350 intravenous contrast. Additional 3D reconstructions utilizing coronal maximum intensity proje ction (MIP) were performed. Automated exposure control and iterative reconstruction technique were em ployed. The dose-length product was 528.86 mGy-cm. COMPARISON: None FINDINGS: Good contrast opacification of the pulmonary arteries. There is mild streak artifact from dense contr ast in the superior vena cava and right atrium. Moderate scattered respiratory motion artifact which decreases sensitivity in many of the smaller subsegmental pulmonary arteries. No pulmonary embolism. Mild atelectasis in the bilateral lower lobes, left greater than right. No pneumonia,, pulmonary ivania a or pleural effusion. There are few scattered small calcified pulmonary nodules along with calcified mediastinal lymph nodes consistent with old granulomatous disease. Heart size is normal. Atheroscler otic coronary artery calcifications. Dense mitral annular calcific location. Aortic valve calcificati on. No pericardial effusion. No pathologically enlarged thoracic lymphadenopathy. There are bridging osteophytes at multiple levels in the spine, consistent with diffuse idiopathic skeletal hyperostosis (DISH). Multiple calcified gallstones in the decompressed gallbladder. IMPRESSION: 1. No pulmonary embolism. Sensitivity decreased in some of the smaller subsegmental pulmonary arterie s by moderate motion artifact. 2. Mild atelectasis in the bilateral lower lobes. No other acute cardiopulmonary disease. 3. Cholelithiasis. Reviewed, dictated and finalized at location A. TION DESIGN AND ANALYSIS MANAGER IMPRESSION: 1. No pulmonary embolism. Sensitivity decreased in some of the smaller subsegme ntal pulmonary arteries by moderate motion artifact. 2. Mild atelectasis in the bilateral lower lobes. No other acute cardiopulmonar y disease. 3. Cholelithiasis.
--- NOTE | 2022-07-30 17:36 | ADMGEN ---
This patient, Sami Bryant, was admitted to IMU Room 201-01. Patient/family oriented to hospital policies and general routines including ID bracelet, bed and alarms, visiting hours, pain management, procedures, bathroom and other care routines, personal items, smoking policy, room service/diet, and visiting hours. Information on how to activate the Rapid Response Team has been discussed. Patient/Family are encouraged to report perceived risks to care and to ask questions if they do not understand what they are told or what they should do.
--- NOTE | 2022-07-30 17:37 | PM.IMHP ---
H&P: HPI History of Present Illness Date/Time: 07/30/22 17:37 Chief Complaint: Shortness of breath Narrative: This is an 81-year-old male patient who has dementia and is very confused. The patient was tested positive for COVID 3 days ago. His tested positive 5 days ago. However in the last 2 days the patient became progressively more short of breath and came to the hospital and [place]. He denies any chest pain. The EKG at [place] was read as atrial flutter tachycardia with aberrant conduction and a right bundle branch block. The patient was started on a Cardizem drip after being given 20 mg of Cardizem IV push. His heart rate did slow down to the 90s and 100s after that. Patient's heart rate was initially in the 150s. The patient also had an elevated troponin of 82.3 as per [place] lab within normal range from 0.00-60.4. His BNP was elevated to 4135. His creatinine is 1.67 with a baseline somewhere around 1.36-1.60. The patient is a direct admit from [facility]. The patient is being admitted to observation status on the date of service of 07/30/2022. Review of Systems Review of Systems: See HPI All systems reviewed & are unremarkable except as noted in HPI and below Constitutional: Constitutional: Reports as per HPI and Reports no additional constitutional complaints Eyes: Eyes: Reports as per HPI and Reports no additional eye complaints ENT: Reports system reviewed and no additional complaints, except as documented and Reports Normal hearing present Cardiovascular: Cardiovascular: Reports no additional cardiovascular complaints Respiratory: Respiratory: Reports no additional respiratory complaints and Reports no additional respiratory complaints Gastrointestinal: Gastrointestinal: Reports as per HPI and Reports no additional gastrointestinal complaints Musculoskeletal: Musculoskeletal: Reports no additional musculoskeletal complaints Integumentary/Breasts: Skin/Breast: Reports system reviewed and no additional complaints, except as docu and Reports as per HPI Neurologic: Reports system reviewed and no additional complaints, except as documented, Reports as per HPI and Reports Normal hearing present Psychiatric: Psychiatric: Reports no additional psychiatric complaints and Reports as per HPI Endocrine: Endocrine: Reports no additional endocrine complaints Hematologic/Lymphatic: Hematologic/Lymphatic: Reports no additional hematologic/lymphatic complaints Allergic/Immunologic: Allergic/Immunologic: Reports no additional allergic/immunologic complaints [facility] Past Medical History Medical History (Updated 07/30/22 @ 19:14 by Beena Brown NP) Chronic renal failure, stage 3 (moderate) Colon cancer Dementia Hyperlipidemia Hypertension Insulin-requiring or dependent type II diabetes mellitus Surgical History Surgical History (Updated 07/30/22 @ 18:49 by Beena Brown NP) H/O cataract extraction H/O colectomy H/O colonoscopy with polypectomy History of tonsillectomy Family History Family History (Updated 07/30/22 @ 18:50 by Beena Brown NP) Mother Diabetes mellitus Father Acute myocardial infarction Sibling Diabetes mellitus Social History Social History (Updated 07/30/22 @ 18:51 by Beena Brown NP) Social History: According to the records the patient quit smoking in 1968. The patient does be lives with his Makenzie. He is retired any tells me he has no children. Code status full code Smoking status: Former smoker Alcohol intake: never Substance use: never Lack of Transportation: No Lack of Food: Never True Current Housing: I Have Housing Concerned About Future Housing: No Difficulty Paying Gas/Electric Bills: No Difficulty Paying for Meds: No Currently Unemployed: No Education: Decline to Answer Difficulty w/ Childcare or Family Care: No Gender identity (if verbalized by the patient): Male Spiritual care concerns: No
[2022-07-30 18:00] VITALS: PULSE 101
[2022-07-30 19:07] LABS: Troponin I 0.069 ng/mL (0.000-0.034)
[2022-07-30 20:00] VITALS: BP 117/74; PULSE 103; PULSE 97; RESP 18; TEMP 36.7; O2SAT 97
[2022-07-30 20:32] VITALS: PULSE 101
[2022-07-30] MEDS: dilTIAZem 100 MG/100 ML 100 MG/100 ML BAG IV CONT (20:32)
[2022-07-30] MEDS: DONEPEZIL HCL 10 MG TABLET PO (20:32)
[2022-07-30 21:21] LABS: Troponin I 0.069 ng/mL (0.000-0.034)
[2022-07-30 22:00] VITALS: PULSE 82
[2022-07-30 23:28] VITALS: BP 116/68; PULSE 102; RESP 20; TEMP 36.4; O2SAT 97
[2022-07-31] VITALS (16 sets, daily range): BP systolic 108–130; BP diastolic 50–71; PULSE 65–140; RESP 16–20; TEMP 36.4–37; O2SAT 94–99
[2022-07-31 01:30] LABS: Troponin I 0.058 ng/mL (0.000-0.034)
[2022-07-31 04:28] LABS: Hematocrit 37.1 % (42.0-52.0); Hemoglobin 12.5 g/dL (14.0-18.0); Immature Granulocyte Absolute 0.01 K/mm3 (0.00-0.031); Immature Granulocyte Percent A 0.2 % (0-0.5); Lymphocytes Absolute Auto 0.19 K/mm3 (0.9-3.2); Lymphocytes Percent Auto 3.1 % (18.3-44.2); Mean Corpuscular HGB Conc 33.7 g/dl (32-36); Mean Corpuscular Hemoglobin 31.1 pg (26-34); Mean Corpuscular Volume 92.3 fl (80-100); Mean Platelet Volume 10.1 fl (7.4-10.4); Monocytes Absolute Auto 0.1 K/mm3 (0.1-0.6); Monocytes Percent Auto 1.8 % (2.6-8.5); Neutrophils Absolute Auto 5.9 K/mm3 (1.3-6.7); Neutrophils Percent Auto 94.9 % (45.5-73.1); Platelet Count Result 159 k/mm3 (150-375); Red Blood Count 4.02 M/mm3 (4.6-6.20); White Blood Count 6.2 K/mm3 (4.5-10.0)
[2022-07-31 04:30] LABS: Hemoglobin A1C 5.9 % (<5.7)
[2022-07-31 04:35] LABS: Alanine Aminotransferase 17 U/L (6-50); Albumin Level 3.8 g/dL (3.5-5.1); Alkaline Phosphatase 67 U/L (38-126); Anion Gap 7 mmol/L (8-16); Aspartate Amino Transferase 21 U/L (17-59); Bilirubin,Total 0.6 mg/dL (0.2-1.3); Blood Urea Nitrogen 34 mg/dL (9-20); Calcium 8.3 mg/dL (8.4-10.2); Carbon Dioxide 24 mmol/L (22-30); Chloride 103 mmol/L (98-107); Estimated Glomerular Filt Rate 39; Glucose 266 mg/dL (65-110); Magnesium 2.2 mg/dL (1.6-2.3); Sodium 134 mmol/L (137-145)
[2022-07-31 04:51] LABS: Lactic Acid Reflex 0.9 mmol/L (0.7-2.0)
[2022-07-31 05:51] LABS: Appearance Urine Clear (Clear); Bilirubin Urine Negative (Negative); Blood Urine Negative (Negative); Color Urine Yellow (Yellow); Glucose Urine UA 2+ mg/dL (Negative); Ketones Urine Negative (Negative); Leukocyte Esterase Ur Negative LEU/UL (NEGATIVE); Nitrate Urine Negative (Negative); Protein Urine 1+ mg/dL (Negative); Specific Grav Ur <= 1.005 (1.001-1.035); Urobilinogen Urine 0.2 mg/dL (<2.0)
[2022-07-31 05:54] LABS: Mucus Urine Heavy /lpf; RBC Urine 0-2 /hpf (0-2); Squamous Epithelial Cell Urine Rare /hpf (Few)
[2022-07-31 06:10] LABS: Add Urine Microscopic? YES
--- NOTE | 2022-07-31 08:00 | ECHO_ITS ---
Patient Info Name: Sami Bryant Age: 81 years : 1940 Gender: Male Ht: 76 in Wt: 207 lbs BSA: 2.25 m2 HR: 97 bpm BP: 121 / 50 mmHg Heart Rhythm: Atrial Flutter Technical Quality: Fair Exam Date: 07/31/2022 1:31 PM Exam Location: [facility] Pulmonary Exam Room: 207 Patient Status: Inpatient Admit Date: 07/30/2022 Staff Ordering Physician: Beena Brown NP [employer] Washing System Operator: Haylee Mcgarry RDCS Attending Provider: Sherry Vick MD Referring Physician: Stephanie FORD; Exam Type: CA echo doppler color flow Study Info Indications - AFIB Complete two-dimensional, color flow and Doppler transthoracic echocardiogram is performed. History/Risk Factors Hypertension: No Dyslipidemia: No Congenital Heart Disease (CHD): No Diabetic Therapy: Oral Peripheral Arterial Disease (PAD): No Myocardial Infarction (CO): No Chronic Lung Disease: No Obesity: No Renal Disease: No Coronary Artery Disease (CAD) No Congestive Heart Failure (CHF): No Cardiomyopathy/LV Systolic Dysfunction: No Diabetes Mellitus: Type II COPD: No Tobacco Use: Never Cerebrovascular Disease: No Family History: Diabetes Mellitus Deep Vein Thrombosis (DVT): None Dialysis: None Frailty Scale (CSHA): 3: Managing Well Cardiac Arrest: No Summary 1. Complete two-dimensional, color flow and Doppler transthoracic echocardiogram is performed. 2. Technically difficult study with limited views. 3. Left ventricular chamber dimension is normal. 4. Left ventricular systolic function is normal, estimated at 60-65%. 5. There is mild asymmetric septal increased left ventricular wall thickness. 6. The left ventricular diastolic function is indeterminate. 7. Left atrial chamber dimension is mildly enlarged. 8. There is moderate aortic valve stenosis with a peak velocity of 336 cm/s, mean gradient of 23 mmHg, and aortic valve area of 1.2 cm2. 9. There is severe aortic valve calcification. 10. There is trace aortic valve regurgitation. 11. The aortic valve is not well visualized. 12. There is trace tricuspid valve regurgitation. 13. Mild pulmonary hypertension, estimated pulmonary arterial systolic pressure is 43 mmHg. Recommendations * Continue medical therapy for diabetes. Left Ventricle Left ventricular chamber dimension is normal. Left ventricular systolic function is normal, estimated at 60-65%. There is mild asymmetric septal increased left ventricular wall thickness. The left ventricular diastolic function is indeterminate. Technically difficult study with limited views. Right Ventricle Right ventricular chamber dimension is normal. Right ventricular systolic function is normal. Left Atria Left atrial chamber dimension is mildly enlarged. Right Atria Right atrial chamber dimension is normal. Aortic Valve The aortic valve is not well visualized. There is moderate aortic valve stenosis with a peak velocity of 336 cm/s, mean gradient of 23 mmHg, and aortic valve area of 1.2 cm2. There is trace aortic valve regurgitation. There is severe aortic valve calcification. Pulmonic Valve The pulmonic valve is not well visualized. Mitral Valve The mitral valve has thickened leaflets. There is trace mitral valve regurgitation. The mitral valve annulus is severely calcified. Tricuspid Valve The tricuspid valve leaflets are normal. There is trace tricuspid valve regurgitation. Mild pulmon
--- NOTE | 2022-07-31 08:05 | PM.IMPN ---
Progress Note: A&P Assessment and Plan (1) Atrial flutter: Code(s): I48.92 - Unspecified atrial flutter Status: Inactive Assessment and Plan: Appreciate cardiology, follow-up echo, this is known condition, not new onset Would recommend anticoagulation due to chads Vasc of 5 (2) Congestive heart failure: Code(s): I50.9 - Heart failure, unspecified Status: Inactive Assessment and Plan: Repeat echo pending (3) Dementia: Code(s): F03.90 - Unspecified dementia, unspecified severity, without behavioral disturbance, psychotic disturbance, mood disturbance, and anxiety Status: Acute Assessment and Plan: Continue home meds (4) COVID: Code(s): U07.1 - COVID-19 Status: Acute Assessment and Plan: Continue dexamethasone, hold off on remdesivir (5) Elevated troponin: Code(s): R77.8 - Other specified abnormalities of plasma proteins Status: Acute Assessment and Plan: Appreciate cardiology consultation, not concerning for cardiac etiology (6) Insulin-requiring or dependent type II diabetes mellitus: Code(s): E11.9 - Type 2 diabetes mellitus without complications; Z79.4 - exterminator (current) use of insulin Status: Acute Assessment and Plan: A1c is 5.9, continue Accu-Cheks and sliding scale insulin, monitor (7) Chronic renal failure, stage 3 (moderate): Code(s): N18.30 - Chronic kidney disease, stage 3 unspecified Status: Acute Assessment and Plan: Patient's creatinine is 1.67 with a baseline of anywhere from 1.36-1.6. Avoid nephrotoxic medication. Plan DVT prophylaxis with Eliquis GI prophylaxis not indicated Code status full code Subjective Date/time seen: 07/31/22 08:05 Interval history: No overnight events noted. No chest pain or shortness of breath. No nausea, vomiting or diarrhea. No fevers or chills. Patient very confused, at his baseline. Unsure of veracity of answers. Review of Systems Review of Systems: ROS unobtainable: Yes unobtainable due to mental status Exam Narrative: General: No acute distress, alert and oriented per baseline HEENT: Atraumatic, normocephalic, mucous membranes moist CV: Irregularly irregular, S1, S2, systolic ejection murmur noted, soft Lungs: Clear to auscultation bilaterally, no rales or crackles noted, no wheezes, good air entry Abdomen: Soft, nontender, nondistended Extremities: Normal to inspection Skin: No rashes noted, no lesions or wounds seen Psych: Euthymic, normal affect Objective Data Vital Signs Vital Signs: Vital Signs - 24 hr 07/30/22 17:40 07/30/22 18:00 07/30/22 20:00 Temperature 98.0 F Pulse Rate 101 H 103 H Respiratory Rate 18 Blood Pressure 117/74 Pulse Oximetry 97 Oxygen Delivery Room Air 07/30/22 20:32 07/30/22 20:00 07/30/22 20:00 Temperature Pulse Rate 101 H 97 97 Respiratory Rate 18 Blood Pressure Pulse Oximetry 97 Oxygen Delivery Room Air 07/30/22 22:00 07/30/22 23:28 07/31/22 00:00 Temperature 97.6 F Pulse Rate 82 102 H 82 Respiratory Rate 20 Blood Pressure 116/68 Pulse Oximetry 97 Oxygen Delivery 07/31/22 00:00 07/31/22 02:00 07/31/22 04:00 Temperature Pulse Rate 82 76 85 Respiratory Rate 20 Blood Pressure Pulse Oximetry 97 Oxygen Delivery Room Air 07/31/22 04:00 07/31/22 04:00 07/31/22 06:00 Temperature 97.8 F Pulse Rate 85 65 97 Respiratory Rate 20 20 Blood Pressure 121/50 L Pulse Oximetry 97 98 Oxygen Delivery Room Air Intake/Output Intake/Output: Intake & Output 07/28/22 07/29/22 07/30/22 07/31/22 23:59 23:59 23:59 23:59 Intake Total 240 100 Output Total 450 Balance 240 -350 Meds/Results Medications: Active Medications Generic Name Dose Route Start Last Admin Trade Name Freq PRN Reason Stop Dose Admin Dexamethasone Sodium Phosphate 6 mg 07/30/22 19:06 07/30/22 20:31 Dexamethason
--- NOTE | 2022-07-31 08:16 | PC.NURSE ---
HR sustained 130's. Dr Byrd made aware. New orders noted for metoprolol tartrate 50 mg po q8hr.
[2022-07-31] MEDS: INSULIN ASPART (*BKC) 100 UNITS/ML SUB-Q ×3 (08:33→16:50)
[2022-07-31] MEDS: INSULIN GLARGINE (*BKC) 100 UNITS/ML 35 UNITS SUB-Q (08:33)
[2022-07-31] MEDS: METOPROLOL TARTRATE 50 MG TAB PO ×3 (09:16→21:43)
[2022-07-31 09:22] LABS: Glucose Point of Care 270 mg/dl (65-105)
[2022-07-31] MEDS: ENOXAPARIN 40 MG/0.4 ML SYRINGE SUB-Q (09:44)
[2022-07-31] MEDS: risperiDONE 0.25 MG TABLET PO (09:44)
--- NOTE | 2022-07-31 11:00 | ECG_ITS ---
Measurements Intervals [place] Rate: 79 P: [place]: 0 QRS: -68 QRSD: 122 T: 68 QT: 424 QTc: 489 Interpretive Statements ATRIAL FLUTTER/TACHYCARDIA WITH ABERRANT CONDUCTION OR VENTRICULAR PREMATURE COMPLEXES RIGHT BUNDLE BRANCH BLOCK [120+ ms QRS DURATION, UPRIGHT V1, 40+ ms S IN I/aVL/V4/V5/V6] LEFT ANTERIOR FASCICULAR BLOCK [QRS AXIS <= -45, QR IN I, RS IN II] COMPARED TO ECG 07/30/2022 12:10:02 NO SIGNIFICANT CHANGES Electronically Signed On 07-31-2022 16:15:30 PLATE GLASS POLISHER by Krystin Jorgensen M.D.
[2022-07-31 11:58] LABS: Glucose Point of Care 319 mg/dl (65-105)
[2022-07-31] MEDS: LORazepam INJ (*CRX) 2 MG/ML VIAL 1 MG IV PUSH ×2 (14:52→21:44)
[2022-07-31] MEDS: dilTIAZem 100 MG/100 ML 100 MG/100 ML BAG IV CONT (14:55)
--- NOTE | 2022-07-31 16:31 | PM.CNCAR ---
Assessment and Plan Assessment and plan (1) Paroxysmal atrial flutter: Code(s): I48.92 - Unspecified atrial flutter Status: Acute Assessment and Plan: Paroxysmal atrial flutter per review of available records an ECG dating back at least to November 2020. Patient is asymptomatic aside from reported shortness of breath which may have been secondary to COVID-19 versus atrial flutter with RVR. Heart rate better controlled patient denies shortness of breath, palpitations or chest pain. Continue metoprolol tartrate 50 mg p.o. q.8 hours for now. Need to assess fall risk in candidacy for systemic anticoagulation otherwise Eliquis 2.5 mg q.12 hours recommended (age greater than 80, creatinine >1.5). Discontinue enoxaparin upon initiation of Eliquis. Monitor for bleeding. Continue heart rate control strategy with metoprolol. No plans for cardioversion given patient's dementia, isolation for COVID and tolerance of atrial flutter at this time. He would require QUINTEN guidance if cardioversion deemed necessary. Systemic anticoagulation to reduce embolic stroke risk balance with bleeding risk. Follow H&H and or evidence for bleeding. Patient increased risk for bleeding complications given dementia. (2) Elevated troponin: Code(s): R77.8 - Other specified abnormalities of plasma proteins Status: Acute Assessment and Plan: Flat curve without anginal symptoms or new acute ECG changes most likely demand ischemia secondary to atrial flutter with rapid ventricular response and underlying renal insufficiency. This is not consistent with acute coronary syndrome and/or plaque rupture. Check 2D echocardiogram to assess LV function, wall motion abnormalities, valve pathology and pulmonary pressures. Recommendation to follow after review. Conservative medical management recommended at this time. (3) Hypertension: Code(s): I10 - Essential (primary) hypertension Status: Acute Assessment and Plan: BP stable, monitor for intermittent relative hypotension noted at presentation but has improved subsequently. Patient does not appear to be in decompensated heart failure. (4) COVID-19: Code(s): U07.1 - COVID-19 Status: Acute Assessment and Plan: Continue supportive care per primary service, COVID isolation per protocol. Continue telemetry. He was started on dexamethasone. (5) Chronic renal failure, stage 3 (moderate): Code(s): N18.30 - Chronic kidney disease, stage 3 unspecified Status: Acute Assessment and Plan: Stable, monitor renal function electrolytes closely. (6) Dementia: Code(s): F03.90 - Unspecified dementia, unspecified severity, without behavioral disturbance, psychotic disturbance, mood disturbance, and anxiety Status: Acute Assessment and Plan: Per primary service. Patient appeared to be stable and essentially at baseline. Patient remains on donepezil. (7) Insulin-requiring or dependent type II diabetes mellitus: Code(s): E11.9 - Type 2 diabetes mellitus without complications; Z79.4 - FDC (current) use of insulin Status: Acute Assessment and Plan: Management per primary service. Continue to monitor blood sugar, insulin. History of Present Illness History of Present Illness Consult date/time: Date of service: 07/31/22 16:31 Requesting physician: Beena Brown NP Consult reason: Other (Atrial flutter with rapid ventricular response) Reason For Visit: CHF/Elevated Troponin/COVID Narrative: Patient is an 81-year-old male with past medical history significant for type 2 diabetes mellitus, dementia, hypertension, CKD stage 3 who recently tested positive for COVID 3 days prior to admission and was brought to start on emergency department due to progressive shortness of breath. He is found to be in atrial flutter with rapid ventricular response and underlying RBBB with heart rate or proximal 150 beats per minute.
[2022-07-31 16:41] LABS: Glucose Point of Care 203 mg/dl (65-105)
[2022-07-31 16:45] LABS: SARS-CoV-2 RNA PCR Positive
[2022-07-31 20:30] LABS: Glucose Point of Care 216 mg/dl (65-105)
[2022-07-31] MEDS: DONEPEZIL HCL 10 MG TABLET PO (21:42)
[2022-07-31] MEDS: APIXABAN 2.5 MG TABLET PO (21:42)
[2022-07-31] MEDS: QUEtiapine FUMARATE 25 MG TABLET 75 MG PO (23:20)
--- NOTE | 2022-07-31 23:21 | PC.NURSE ---
patient is extremely confused, keeps trying to get out of bed so that he can go upstairs to his bedroom. when trying to orient patient he would get upset and start yelling. patient pulled out 4 iv's prior to this one. the one iv that he has is wrapped up, but patient pull dressing down to wrist and grabs iv to pull on. patient will grab your arms to prevent him from his mission. patient has removed telemetry box from wires and they had to be replaced. patient is constantly fiddling with everything, he tried to pull iv pole down onto self. he kept trying to sit up and climb over bed rails.dr wesley is aware. patient was given medication. hasn't helped patient after an hour. restaints placed hopefully temporary to prevent pulling out of iv. will continue to monitor patient.
[2022-08-01] VITALS (12 sets, daily range): BP systolic 110–149; BP diastolic 60–111; PULSE 56–103; RESP 16–22; TEMP 36–36.6; O2SAT 90–100
[2022-08-01] MEDS: METOPROLOL TARTRATE 50 MG TAB PO ×2 (05:49→13:56)
--- NOTE | 2022-08-01 08:29 | PM.DS ---
DS: Admitting Diagnosis Discharge Date 08/01/22 Admitting Diagnosis sob DS: Discharge Diagnosis Discharge Diagnosis (1) Atrial flutter: Code(s): I48.92 - Unspecified atrial flutter Status: Inactive Assessment and Plan: Appreciate cardiology, follow-up echo, this is known condition, not new onset Would recommend anticoagulation due to chads Vasc of 5 (2) Congestive heart failure: Code(s): I50.9 - Heart failure, unspecified Status: Inactive Assessment and Plan: Repeat echo pending (3) Dementia: Code(s): F03.90 - Unspecified dementia, unspecified severity, without behavioral disturbance, psychotic disturbance, mood disturbance, and anxiety Status: Acute Assessment and Plan: Continue home meds (4) COVID: Code(s): U07.1 - COVID-19 Status: Acute Assessment and Plan: Continue dexamethasone, hold off on remdesivir (5) Elevated troponin: Code(s): R77.8 - Other specified abnormalities of plasma proteins Status: Acute Assessment and Plan: Appreciate cardiology consultation, not concerning for cardiac etiology (6) Insulin-requiring or dependent type II diabetes mellitus: Code(s): E11.9 - Type 2 diabetes mellitus without complications; Z79.4 - alf (current) use of insulin Status: Acute Assessment and Plan: A1c is 5.9, continue Accu-Cheks and sliding scale insulin, monitor (7) Chronic renal failure, stage 3 (moderate): Code(s): N18.30 - Chronic kidney disease, stage 3 unspecified Status: Acute Assessment and Plan: Patient's creatinine is 1.67 with a baseline of anywhere from 1.36-1.6. Avoid nephrotoxic medication. Plan DVT prophylaxis with Eliquis GI prophylaxis not indicated Code status full code DS: Summary Hospital Course Hospital Course: 81-year-old male with past medical history significant for dementia presenting with confusion and found to be COVID positive. He also had atrial tachycardia and was started on a Cardizem drip. Noted to have elevated troponin likely secondary to the tachycardia. Echo was ordered and showed an EF of 60-65% with diastolic dysfunction unable to be determined, moderate aortic valve stenosis and mild pulmonary hypertension. Cardiology was consulted and recommended Eliquis metoprolol. All symptoms resolved and he was discharged in stable condition. See above for details. Time Spent with Patient Time attestation: Total time spent providing and/or coordinating discharge services: Exam Narrative: General: No acute distress, alert and oriented per baseline HEENT: Atraumatic, normocephalic, mucous membranes moist CV: Irregularly irregular, S1, S2, systolic ejection murmur noted, soft Lungs: Clear to auscultation bilaterally, no rales or crackles noted, no wheezes, good air entry Abdomen: Soft, nontender, nondistended Extremities: Normal to inspection Skin: No rashes noted, no lesions or wounds seen Psych: Euthymic, normal affect DS: Data Data Completed and Pending Labs on day of discharge: Labs from last 24 hours 07/31/22 07/31/22 07/31/22 20:23 16:23 16:02 POC Capillary Glucose 216 H 203 H SARS-CoV-2 RNA (RT-PCR) Positive A 07/31/22 07/31/22 11:40 08:00 POC Capillary Glucose 319 H 270 H SARS-CoV-2 RNA (RT-PCR) Discharge Plan Discharge Attending physician on discharge: Mary Naqvi Consulting providers: Elieser Byrd ; Beena Brown ; Krystin Jorgensen ; Ion Bender Discharging Clinician: Mary Naqvi Patient Disposition: Home, Self-Care Activity: as tolerated Diet: as tolerated Patient Instructions: Antibiotic Form Stand Alone Forms: General Discharge Information Follow-up/Referrals: Ko Nunez MD [Primary Care Provider] - Tasia Montez DO [Physician] - Discharge Medications: New Eliquis 2.5 mg Tablet 2.5 mg PO Q12HR 30 Days Qty: 60 0RF metoprolol
[2022-08-01] MEDS: INSULIN GLARGINE (*BKC) 100 UNITS/ML 35 UNITS SUB-Q (09:58)
[2022-08-01 10:05] LABS: Glucose Point of Care 143 mg/dl (65-105)
[2022-08-01 12:29] LABS: Glucose Point of Care 119 mg/dl (65-105)
[2022-08-01] MEDS: APIXABAN 2.5 MG TABLET PO (13:56)
[2022-08-01 16:01] LABS: Glucose Point of Care 159 mg/dl (65-105)
[2022-08-12 08:13] LABS: Glucose Point of Care 231 mg/dl (65-105)
== END 2022-08-01 17:35 | disposition home or self-care (01) ==
PROVIDERS: Nurse Practitioner; Admitting Provider Internal Medicine; PCP Internal Medicine; Visit Provider Student in an Organized Health Care Education/Training Program
DX: I48.92 Unspecified atrial flutter (principal); R00.0 Tachycardia, unspecified; U07.1 COVID-19; R77.8 Other specified abnormalities of plasma proteins; R79.89 Other specified abnormal findings of blood chemistry; F41.9 Anxiety disorder, unspecified; I13.0 Hypertensive heart and chronic kidney disease with heart failure and stage 1 through stage 4 chronic kidney disease, or unspecified chronic kidney disease; N18.9 Chronic kidney disease, unspecified; I50.9 Heart failure, unspecified; E11.22 Type 2 diabetes mellitus with diabetic chronic kidney disease; N18.30 Chronic kidney disease, stage 3 unspecified; F03.90 Unspecified dementia, unspecified severity, without behavioral disturbance, psychotic disturbance, mood disturbance, and anxiety; E78.5 Hyperlipidemia, unspecified; R94.31 Abnormal electrocardiogram [ECG] [EKG]; I27.20 Pulmonary hypertension, unspecified; J98.11 Atelectasis; K80.20 Calculus of gallbladder without cholecystitis without obstruction; Z87.891 Personal history of nicotine dependence; Z79.4 Long term (current) use of insulin; Z79.899 Other long term (current) drug therapy; Z83.3 Family history of diabetes mellitus; Z82.49 Family history of ischemic heart disease and other diseases of the circulatory system
CPT/HCPCS: 36415; 71275; 80053; 81001; 82948; 83036; 83605; 83735; 84443; 84484; 85025; 93005; 93306; 96365; 96366; 96372; 96375; 96376; A9270; G0378; G0379; J1100; J1650; J1815; J2060; Q9967; U0003; U0005

== ENCOUNTER 2022-08-08 16:52 | Observation (INO) | payer MEDICARE, SELFPAY ==
--- NOTE | ~2022-08-08 | CT_ITS ---
EXAMINATION: CT brain wo con DATE: 08/08/2022 18:51 INDICATION: Altered mental status TECHNIQUE: Computed tomography (CT) of the head was performed without intravenous contrast. The dose- length product was 605.33 mGy-cm. Automated exposure control and iterative reconstruction technique w ere employed. COMPARISON: CT dated 05/11/2022 FINDINGS: Generalized brain parenchymal volume loss. No ventriculomegaly or midline shift. There are scattered moderate periventricular and subcortical white matter changes, most likely related to small vessel ischemic disease (microangiopathy). There is intracranial atherosclerosis. No acute infarctio n, hemorrhage, mass or mass effect. There are changes of previous lens surgery. Mucosal thickening of the right maxillary and ethmoid sinuses. No depressed skull fractures. IMPRESSION: 1. No acute intracranial abnormality. 2: Chronic age-related findings. Reviewed, dictated and finalized at location A. DULE PLANNING MANAGER
--- NOTE | ~2022-08-08 | XR_ITS ---
EXAMINATION: XR chest 1V portable 08/08/2022 19:52 INDICATION: Hypertension. Atrial fibrillation. PROCEDURE: AP portable chest COMPARISON: Comparison to multiple prior studies sequentially, with oldest reviewed study dated 06/2020. FINDINGS: The lungs are clear. The cardiomediastinal silhouette is within normal limits. There are no pleural effusions. There is no pneumothorax suspected. IMPRESSION: 1: NO ACUTE CARDIOPULMONARY DISEASE. Reviewed, dictated and finalized at location A. D LIVESTOCK FARMER
[2022-08-08 16:52] VITALS: BP 132/60; PULSE 65; RESP 18; TEMP 37.1; O2SAT 96
--- NOTE | 2022-08-08 17:03 | ECG_ITS ---
Measurements Intervals [place] Rate: 75 P: AR: 0 QRS: -61 QRSD: 130 T: 20 QT: 404 QTc: 454 Interpretive Statements ATRIAL FIBRILLATION RIGHT BUNDLE BRANCH BLOCK [120+ ms QRS DURATION, UPRIGHT V1, 40+ ms S IN I/aVL/V4/V5/V6] LEFT ANTERIOR FASCICULAR BLOCK [QRS AXIS <= -45, QR IN I, RS IN II] VOLTAGE CRITERIA FOR LVH [MEETS CRITERIA IN ONE OF: R(aVL), S(V1), R(V5), R(V5/V6)+S(V1)] BASELINE ARTIFACT COMPARED TO ECG 07/31/2022 11:49:33 ATRIAL FIBRILLATION NOW PRESENT LEFT VENTRICULAR HYPERTROPHY NOW PRESENT Electronically Signed On 08-08-2022 20:16:26 COPER HAND by Sarah Andrade M.D.
[2022-08-08] MEDS: LORazepam INJ (*CRX) 2 MG/ML VIAL 0.5 MG IM (17:26)
[2022-08-08 17:33] LABS: Basophils Absolute Auto 0.03 K/mm3 (0.00-0.10); Basophils Percent Auto 0.3 % (0.0-1.0); Eosinophils Absolute Auto 0.01 K/mm3 (0.02-0.50); Eosinophils Percent Auto 0.1 % (1.0-6.0); Hematocrit 33.8 % (37.0-46.0); Hemoglobin 10.3 g/dL (12.4-15.3); Immature Granulocyte Absolute 0.15 K/mm3 (0.00-0.00); Immature Granulocyte Percent A 1.7 % (0.0-0.0); Lymphocytes Absolute Auto 0.28 K/mm3 (1.10-4.50); Lymphocytes Percent Auto 3.1 % (18.0-42.0); Mean Corpuscular HGB Conc 30.5 g/dL (32.0-36.0); Mean Corpuscular Hemoglobin 30.8 pg (27.0-31.0); Mean Corpuscular Volume 101.2 fL (78.0-102.0); Mean Platelet Volume 10.9 fl (8.7-11.0); Monocytes Absolute Auto 0.34 K/mm3 (0.10-0.90); Monocytes Percent Auto 3.8 % (2.0-11.0); Neutrophils Absolute Auto 8.1 K/mm3 (1.7-7.2); Platelet Count Result 214 K/mm3 (150-420); Red Blood Count 3.34 M/mm3 (4.70-6.10); Red Cell Distribution Width 11.8 % (11.6-14.4); White Blood Count 8.9 K/mm3 (4.8-10.8)
[2022-08-08 17:43] LABS: CRP 0.8 mg/dL (0.0-0.9)
[2022-08-08 17:44] LABS: Partial Thromboplastin Time 25.1 SEC (23.90-30.70); Prothrombin Time 11.1 Seconds (9.50-12.10)
[2022-08-08 17:54] LABS: Alanine Aminotransferase 17 U/L (16-63); Albumin Level 3.3 g/dL (3.4-5.0); Alkaline Phosphatase 66 U/L (46-116); Anion Gap 6 mmol/L (8-16); Aspartate Amino Transferase 17 U/L (15-37); Bilirubin,Total 0.3 mg/dL (0.00-1.00); Blood Urea Nitrogen 33 mg/dL (7-18); Calcium 8.6 mg/dL (8.5-10.1); Carbon Dioxide 29 mmol/L (21-32); Chloride 100 mmol/L (98-108); Estimated CRCL calculation 30 ml/min; Estimated Glomerular Filt Rate 41; Glucose 231 mg/dL (70-99); Osmolality Calculated 294 mOsm/kg (285-295); Potassium 5.1 mmol/L (3.5-5.1); Sodium 135 mmol/L (136-145); Thyroid Stimulating Hormone 5.14 uIU/mL (0.36-3.74); Total Protein 7.3 g/dL (6.4-8.2); Troponin I 24.6 ng/L (0.00-60.4)
--- NOTE | 2022-08-08 18:02 | PC.NURSE ---
and son in with pt. remains in jean pierre chair with tray on for pt safety.
[2022-08-08] MEDS: SODIUM CHLORIDE 0.9% IV 1,000 ML 999 ML IV CONT (18:19)
--- NOTE | 2022-08-08 18:58 | PC.NURSE ---
[address] with 2 er staff. able to complete test with much encouragement and instruction to pt. returned to room incontinent of urine, skin care given, adult brief applied. warm blanket applied. family in room. lights out and tv off to reduce stimulation. 1899report to katina baker .
--- NOTE | 2022-08-08 19:15 | PC.NURSE ---
Pt out of bed p corn lab technician attempted to get CXR. Pt kicking at staff and trying to get out of room. Pt assisted back to bed c assist of 4 staff and able to get pt to lie down c assistance. Order obtained from [facility] for Haldol.
[2022-08-08] MEDS: HALOPERIDOL LACTATE 5 MG/ML VIAL IM (19:20)
[2022-08-08 20:00] VITALS: BP 132/78; PULSE 71; RESP 18; TEMP 36.6; O2SAT 97
[2022-08-08 20:03] LABS: Add Urine Microscopic? YES; Appearance Urine Clear (Clear); Bilirubin Urine Negative (Negative); Blood Urine 1+ (Negative); Color Urine Light Yellow (Yellow); Glucose Urine UA 1+ (Negative); Ketones Urine Negative (Negative); Leukocyte Esterase Ur Negative LEU/UL (Negative); Nitrate Urine Negative (Negative); Protein Urine Negative (Negative); Urobilinogen Urine 0.2 mg/dL (0.2-1.0); pH Urine 5.5 (5.0-8.0)
[2022-08-08 20:09] LABS: Bacteria Urine None seen /hpf; Squamous Epithelial Cell Urine None seen /hpf (Few); WBC Urine 0-3 /hpf (0-3)
--- NOTE | 2022-08-08 20:15 | ED.AMS ---
HPI - Altered Mental Status General Chief Complaint: Altered Mental Status Stated Complaint: AMBULANCE - agitation Source: family and EMS Mode of arrival: EMS Limitations: altered mental status and dementia History of Present Illness HPI narrative: This is a 81-year-old gentleman with a history of atrial fibrillation diabetes type 2 history of the dementia. The patient is brought in to the ER via EMS with aggressive behavior and altered mental status, otherwise patient is alert is combative, was recently discharged from [facility] was diagnosed with COVID approximately 12 days ago and has been on an oral steroid upon discharge. Patient is according to family still on a oral steroid, has a history of dementia and psychosis and otherwise denies any chest pain or shortness of breath no cough or congestion no fever or chills no nausea vomiting no dysuria no abdominal pain. MD complaint: altered mental status Onset (ago): day(s) Timing confirmed by: spouse Severity: moderate Consistency of symptoms: constant Context: diabetes Associated symptoms: denies other symptoms Related Data Home Medications Medication Instructions Recorded Confirmed donepezil 10 mg tablet 10 mg PO HS 06/26/21 08/08/22 insulin glargine 100 unit/mL 35 unit subcut DAILY 11/20/21 08/08/22 subcutaneous solution (Lantus U-100 Insulin) alprazolam 0.5 mg tablet (Xanax) 0.25 mg PO TID PRN anxiety 05/11/22 08/08/22 risperidone 0.25 mg tablet 0.25 mg PO DAILY 05/11/22 08/08/22 Allergies Allergy/AdvReac Type Severity Reaction Status Date / Time No Known Allergies Allergy Verified 07/30/22 12:03 Review of Systems Review of Systems: All systems reviewed & are unremarkable except as noted in HPI and below PMFSH Past Medical History Medical History Chronic renal failure, stage 3 (moderate) Colon cancer Dementia Hyperlipidemia Hypertension Insulin-requiring or dependent type II diabetes mellitus Surgical History Surgical History H/O cataract extraction H/O colectomy H/O colonoscopy with polypectomy History of tonsillectomy Family History Family History Mother Diabetes mellitus Father Acute myocardial infarction Sibling Diabetes mellitus Social History Social History Social History: According to the records the patient quit smoking in 1968. The patient does be lives with his Makenzie. He is retired any tells me he has no children. Code status full code Smoking status: Former smoker Alcohol intake: never Substance use: never Lack of Transportation: No Lack of Food: Never True Current Housing: I Have Housing Concerned About Future Housing: No Difficulty Paying Gas/Electric Bills: No Difficulty Paying for Meds: No Currently Unemployed: No Education: Decline to Answer Difficulty w/ Childcare or Family Care: No Gender identity (if verbalized by the patient): Male Spiritual care concerns: No Exam Const: General: no acute distress Nutritional Appearance: well nourished Limitations: behavioral limitations HENMT: Head: normal to inspection Face/Nose/Sinus: Normal external nose present Face and sinus: normal facial exam Mouth: Yes Normal oral and palatal mucosa present Eyes: Conjunctivae: conjunctivae normal Pupils: Equal, round and reactive pupils present EOM: EOMs intact bilaterally Neck: Neck: normal visual inspection Chest: Chest palpation & inspection: normal inspection of the chest Resp: Effort & Inspection: normal respiratory effort Auscultation: clear to auscultation bilaterally Cardio: Rate: regular rate Rhythm: abnormal rhythm GI: GI Palp: Yes Soft to palpation Auscultation: normal bowel sounds : General: Yes bladder normal to palpation Urinary C
--- NOTE | 2022-08-08 20:20 | PC.NURSE ---
Pt sleeping at this time, holding onto 's hand. Family at bedside. VSS. Call placed to DEISI Baer to speak c Dr Sykes about admit.
--- NOTE | 2022-08-08 20:59 | PC.NURSE ---
Pt continues to sleep c holding pts. hand at bedside. Call placed to 2nd floor for admission room assignment. Pt VSS, Rr even and nonlabored, bourne draining to gravity.
[2022-08-08 21:17] VITALS: BP 117/72; PULSE 68; RESP 20; TEMP 36.6; O2SAT 96
[2022-08-08 21:35] VITALS: BMI 17.3
--- NOTE | 2022-08-08 21:35 | ADMGEN ---
This patient, Sami Bryant, was admitted to 2nd Floor Room 210-1. Patient oriented to hospital policies and general routines including ID bracelet, bed and alarms, visiting hours, pain management, procedures, bathroom and other care routines, personal items, smoking policy, room service/diet, and visiting hours, patient unable to comprehend. Information on how to activate the Rapid Response Team has been discussed. Patient are encouraged to report perceived risks to care and to ask questions if they do not understand what they are told or what they should do.
[2022-08-08 22:00] VITALS: BP 135/67; PULSE 70; RESP 18; TEMP 36; O2SAT 96
[2022-08-08] MEDS: DONEPEZIL HCL 5 MG TABLET 10 MG PO (22:34)
[2022-08-08] MEDS: traZODone HCL 50 MG TABLET PO (22:34)
[2022-08-08] MEDS: APIXABAN 2.5 MG TABLET PO (22:35)
[2022-08-09] VITALS: BP 135/67; PULSE 70; RESP 18; TEMP 36; O2SAT 96
[2022-08-09] MEDS: LORazepam INJ (*CRX) 2 MG/ML VIAL 1 MG IV PUSH ×3 (06:32→19:35)
--- NOTE | 2022-08-09 06:34 | PC.NURSE ---
Pt given ativan 1 mg IVP to relieve agitation
--- NOTE | 2022-08-09 07:21 | PC.NURSE ---
At 0615 pt noted getting out of bed unassisted, unable to redirect pt, pt combative and resistive to cares, mortgage or loan underwriter called for assist, Brittni RN and Vicente RN were able to assist, Brittni went to retrieve PRN Ativan, while Vicente and mortgage or loan underwriter continued to try to get pt to sit in recliner or lay back in bed, pt continually agrees to suggestions while attempting to go out of the door, gait unsteady. At 0630 Brittni arrived with PRN Ativan, which was administered via IV, tolerated well, slowly pt became more unsteady and staff able to place in jean pierre-chair. Product Steward pushed pt around unit, looking for his Makenzie, until 0650 when pt became more calm.
[2022-08-09 08:00] VITALS: BP 114/80; PULSE 84; RESP 16; TEMP 36.6; O2SAT 94
[2022-08-09 08:01] LABS: Glucose Point of Care 98 mg/dl (65-105)
[2022-08-09 10:46] VITALS: PULSE 84
[2022-08-09] MEDS: risperiDONE 0.25 MG TABLET PO (10:46)
[2022-08-09] MEDS: APIXABAN 2.5 MG TABLET PO ×2 (10:46→20:56)
[2022-08-09] MEDS: INSULIN GLARGINE (*BKC) 1,000 UNITS/10 ML VIAL 35 UNITS SUB-Q (10:46)
[2022-08-09] MEDS: METOPROLOL SUCCINATE EXT REL 50 MG TABCR PO (10:46)
--- NOTE | 2022-08-09 11:30 | PM.IMHP ---
H&P: HPI History of Present Illness Date/Time: 08/09/22 11:30 Chief Complaint: Alter mental status , acute delirium possible steroid induced Narrative: This is a 81-year-old gentleman with a history of atrial fibrillation diabetes type 2 history of the dementia.? The patient is brought in to the ER via EMS with altered mental status, otherwise patient is alert is very busy trying to roam and get up to do execessive amount of activity. Patient , was recently discharged from [facility] was diagnosed with COVID approximately 12 days ago and has been on an oral steroid upon discharge which has been discontinued as this may be the cause of his increased delierum.? Patient has no complaints is not aware of his surrounding sitting in a highback chair with a try to keep himself busy. Patient denies any chest pain or shortness of breath no cough or congestion no fever or chills no nausea vomiting no dysuria no abdominal pain. Review of Systems Review of Systems: delirium, dementia, wandering All systems reviewed & are unremarkable except as noted in HPI and below PMFSH Past Medical History Medical History Chronic renal failure, stage 3 (moderate) Colon cancer Dementia Hyperlipidemia Hypertension Insulin-requiring or dependent type II diabetes mellitus Surgical History Surgical History H/O cataract extraction H/O colectomy H/O colonoscopy with polypectomy History of tonsillectomy Family History Family History Mother Diabetes mellitus Father Acute myocardial infarction Sibling Diabetes mellitus Social History Social History Social History: According to the records the patient quit smoking in 1968. The patient does be lives with his Makenzie. He is retired any tells me he has no children. Code status full code Smoking status: Unknown if ever smoked Alcohol intake: unknown Substance use: unknown Lack of Transportation: No Lack of Food: Never True Current Housing: I Have Housing Concerned About Future Housing: No Difficulty Paying Gas/Electric Bills: No Difficulty Paying for Meds: No Currently Unemployed: No Education: Decline to Answer Difficulty w/ Childcare or Family Care: No Gender identity (if verbalized by the patient): Male Spiritual care concerns: No Meds Home Medications and Allergies Home Medications Medication Instructions Recorded Confirmed Type donepezil 10 mg tablet 10 mg PO HS 06/26/21 08/08/22 History insulin glargine 100 unit/mL 35 unit subcut DAILY 11/20/21 08/08/22 History subcutaneous solution (Lantus U-100 Insulin) alprazolam 0.5 mg tablet (Xanax) 0.25 mg PO TID PRN anxiety 05/11/22 08/08/22 History risperidone 0.25 mg tablet 0.25 mg PO DAILY 05/11/22 08/08/22 History apixaban 2.5 mg tablet (Eliquis) 2.5 mg PO Q12HR 1 month #60 tabs 08/01/22 08/08/22 Rx dexamethasone 6 mg tablet 6 mg PO DAILY 7 days #7 tabs 08/01/22 08/08/22 Rx metoprolol succinate 50 mg 50 mg PO DAILY 1 month #30 tabs 08/01/22 08/08/22 Rx tablet,extended release 24 hr Allergies Allergy/AdvReac Type Severity Reaction Status Date / Time No Known Allergies Allergy Verified 07/30/22 12:03 Vital Signs Vital Signs - 24 hr 08/08/22 16:52 08/08/22 20:00 08/08/22 21:17 Temperature 98.7 F 97.9 F 97.8 F Pulse Rate 65 71 68 Respiratory Rate 18 18 20 Blood Pressure 132/60 132/78 117/72 Pulse Oximetry 96 97 96 Oxygen Delivery Room Air Room Air Room Air 08/08/22 22:00 08/09/22 00:00 08/09/22 10:46 Temperature 96.8 F L 96.8 F L Pulse Rate 70 70 84 Respiratory Rate 18 18 Blood Pressure 135/67 135/67 Pulse Oximetry 96 96 Oxygen Delivery Room Air Room Air 08/09/22 08:00 Temperature 98 F Pulse Rate 84 Respiratory Rate 16 Blood
[2022-08-09 12:02] LABS: Glucose Point of Care 168 mg/dl (65-105)
[2022-08-09 16:00] VITALS: BP 130/61; PULSE 69; RESP 18; TEMP 36.6; O2SAT 96
[2022-08-09] MEDS: DEXTROSE 50% 25 GM/50 ML SYRINGE (16:58)
[2022-08-09 17:01] LABS: Glucose Point of Care 42 mg/dl (65-105)
[2022-08-09 17:01] LABS: Glucose Point of Care 50 mg/dl (65-105)
[2022-08-09 17:23] LABS: Glucose Point of Care 130 mg/dl (65-105)
--- NOTE | 2022-08-09 17:47 | PC.NURSE ---
1700 M. Geraldo, ANALOG DEVICE DESIGNER/Hospitalist, notified of low blood sugars. New orders received D50 administered and Lantus was decreased to 17 units a.m.
[2022-08-09] MEDS: DEXTROSE 50% 25 GM/50 ML SYRINGE IV PUSH (20:53)
[2022-08-09] MEDS: DONEPEZIL HCL 5 MG TABLET 10 MG PO (20:56)
--- NOTE | 2022-08-09 21:42 | PC.NURSE ---
2100 , Makenzie, notified that patient was moved to Room 206 to be closer to the nurses desk.
--- NOTE | 2022-08-09 21:52 | PC.NURSE ---
2150 Maude. Geraldo, AUTO BODY WORKER/Hospitalist, notified that patient's HS blood sugar was 55, D50 given, cristiana
--- NOTE | 2022-08-09 21:54 | PC.NURSE ---
2150 Maude. Geraldo, ROOFING SUBCONTRACTOR/Hospitalist, notified that patient's HS blood sugar was 55. D50 given per orders, blood sugar rechecked and was 91.
[2022-08-09] MEDS: DEXTROSE 5%/0.9% SOD CHL 1,000 ML 75 ML IV CONT (23:14)
[2022-08-09 23:50] VITALS: BP 116/65; PULSE 65; RESP 20; TEMP 36.6; O2SAT 97
--- NOTE | 2022-08-10 | PC.NURSE ---
Upon rounding, pt sitting up in jean pierre-chair c legs elevated, sleeping but awakens to voice and will converse. Pt cooperatve at this time. D5NS started per new order, pt falls back asleep easily. Call ashton at pt side.
[2022-08-10] MEDS: ACETAMINOPHEN 325 MG TABLET 650 MG PO (07:33)
[2022-08-10 07:35] LABS: Glucose Point of Care 80 mg/dl (65-105)
[2022-08-10 07:47] VITALS: BP 105/69; PULSE 78; RESP 18; TEMP 36.8; O2SAT 99
[2022-08-10 08:05] VITALS: PULSE 78
[2022-08-10] MEDS: METOPROLOL SUCCINATE EXT REL 50 MG TABCR PO (08:05)
[2022-08-10] MEDS: risperiDONE 0.25 MG TABLET PO (08:05)
[2022-08-10] MEDS: APIXABAN 2.5 MG TABLET PO ×2 (08:06→21:16)
[2022-08-10] MEDS: LORazepam INJ (*CRX) 2 MG/ML VIAL 1 MG IV PUSH ×2 (08:40→17:58)
--- NOTE | 2022-08-10 08:41 | WPDPN ---
Progress Note: A&P Assessment and Plan (1) Acute delirium: Code(s): R41.0 - Disorientation, unspecified Status: Acute Assessment and Plan: - avoid steroid use -monitor for improvement since removed off of steroids - No more Steroids (2) Paroxysmal atrial flutter: Code(s): I48.92 - Unspecified atrial flutter Status: Acute Assessment and Plan: continue home medication rate controlled (3) Chronic renal failure, stage 3 (moderate): Code(s): N18.30 - Chronic kidney disease, stage 3 unspecified Status: Acute Assessment and Plan: stable (4) Insulin-requiring or dependent type II diabetes mellitus: Code(s): E11.9 - Type 2 diabetes mellitus without complications; Z79.4 - watermaster (current) use of insulin Status: Acute Assessment and Plan: -continue to monitor blood sugar give insulin as indicated (5) Dementia: Qualifiers: Dementia behavioral or psychological symptom: with psychotic disturbance Dementia severity: moderate Dementia type: unspecified type Qualified Code(s): F03.B2 - Unspecified dementia, moderate, with psychotic disturbance Code(s): F03.90 - Unspecified dementia, unspecified severity, without behavioral disturbance, psychotic disturbance, mood disturbance, and anxiety Status: Acute Assessment and Plan: -more than likely due to steroid use (6) Hypertension: Code(s): I10 - Essential (primary) hypertension Status: Acute Assessment and Plan: -continue home medication -Blood pressure stable. Subjective Date/time seen: 08/10/22 08:41 Interval history: This is a 81 year who is very confused and has to be monitored as he tries to moves around and get up. Patient is not aware to his surroundings and he is slightly anxious at times. patient is able to eat and drink without difficulties he denies pain. Patient family comes and sits with him often Exam Narrative: GENERAL:Well-appearing, pale well-nourished, and in no acute distress. HEAD:Normocephalic, atraumatic. EYES: PERRLA ENT: Nares clear, no rhinorrhea or epistaxis. Mucous membranes moist. CHEST: Clear to auscultation. . HEART: Regular rate and rhythm. Normal peripheral pulses. ABDOMEN: Soft, nontender, nondistended, normal active bowel sounds. EXTREMITIES: Normal range of motion. SKIN: Warm, dry, no rash. NEURO: No focal deficits. Alert and oriented to self Objective Data Vital Signs Vital Signs: Vital Signs - 24 hr 08/09/22 10:46 08/09/22 16:00 08/09/22 23:50 Temperature 98 F 97.9 F Pulse Rate 84 69 65 Respiratory Rate 18 20 Blood Pressure 130/61 116/65 Pulse Oximetry 96 97 Oxygen Delivery Room Air Room Air 08/10/22 07:47 08/10/22 08:05 Temperature 98.3 F Pulse Rate 78 78 Respiratory Rate 18 Blood Pressure 105/69 Pulse Oximetry 99 Oxygen Delivery Room Air Intake/Output Intake/Output: Intake & Output 08/07/22 08/08/22 08/09/22 08/10/22 23:59 23:59 23:59 23:59 Intake Total 1000 1200 120 Output Total 2300 450 Balance 1000 -1100 -330 Meds/Results Medications: Active Medications Generic Name Dose Route Start Last Admin Trade Name Freq PRN Reason Stop Dose Admin Acetaminophen 650 mg 08/08/22 20:41 08/10/22 07:33 Acetaminophen 325 Mg Tablet PO 650 mg Q4H PRN Administration Mild Pain (1-3) or Fever Apixaban 2.5 mg 08/08/22 21:00 08/10/22 08:06 Apixaban 2.5 Mg Tablet PO 2.5 mg Q12HR QUAN Administration Dextrose 12.5 gm 08/09/22 17:01 08/09/22 20:53 Dextrose 50% 25 Gm/50 Ml Syringe IV PUSH 12.5 gm PRN PRN Administration Hypoglycemia Protocol Donepezil HCl 10 mg 08/08/22 21:00 08/09/22 20:56 Donepezil Hcl 5 Mg Tablet PO 09/07/22 20:59 10 mg HS QUAN Administration Glucagon 1 mg 08/09/22 17:01 Glucagon For Inj 1 Mg Vial IM PRN PRN Hypoglycemia Protocol Glucose 15 gm 08/09/22 17:01
--- NOTE | 2022-08-10 08:45 | PC.NURSE ---
Held am lantus due to BS at 80, and patient recent history of hypoglycemia. Patient ate well for breakfast, but appetite is not regular at this time.
--- NOTE | 2022-08-10 09:03 | PC.NURSE ---
Patient given ativan and placed in bed on R side to get pressure off of buttocks.
[2022-08-10 11:45] LABS: Glucose Point of Care 155 mg/dl (65-105)
[2022-08-10] MEDS: DEXTROSE 5%/0.9% SOD CHL 1,000 ML 75 ML IV CONT (12:46)
[2022-08-10 16:00] VITALS: BP 130/53; PULSE 68; RESP 16; TEMP 36.9; O2SAT 94
[2022-08-10 16:45] LABS: Glucose Point of Care 223 mg/dl (65-105)
--- NOTE | 2022-08-10 18:08 | PC.NURSE ---
Patient awake around 1700. Within minutes patient was stating that he sees Prieto, his is trying to kill him, and his parents are in the cai. Per family, freelance copywriter allowed patient to attempt to eat, and patient became more and more agitated. Patient attempting to climb out of bed and becoming aggressive with family. Gravity Prospecting Operator administered Ativan PRN, and patient is starting to calm down.
[2022-08-10 19:43] VITALS: PULSE 68; RESP 16; O2SAT 94
[2022-08-10] MEDS: traZODone HCL 50 MG TABLET PO (21:16)
[2022-08-10] MEDS: DONEPEZIL HCL 5 MG TABLET 10 MG PO (21:16)
[2022-08-10 21:22] LABS: Glucose Point of Care 223 mg/dl (65-105)
[2022-08-10] MEDS: LORazepam INJ (*CRX) 2 MG/ML VIAL IV PUSH (23:02)
[2022-08-11] VITALS: BP 120/45; PULSE 60; RESP 16; TEMP 37.1; O2SAT 95
[2022-08-11] MEDS: DEXTROSE 5%/0.9% SOD CHL 1,000 ML 75 ML IV CONT (02:19)
[2022-08-11] MEDS: LORazepam INJ (*CRX) 2 MG/ML VIAL IV PUSH ×3 (04:33→23:22)
--- NOTE | 2022-08-11 04:35 | PC.NURSE ---
Pt became agitated with turning and repositioning, PRN ativan given.
[2022-08-11 07:37] LABS: Glucose Point of Care 156 mg/dl (65-105)
[2022-08-11 07:59] VITALS: BP 116/54; PULSE 63; RESP 16; TEMP 36.8; O2SAT 96
--- NOTE | 2022-08-11 09:17 | WPDPN ---
Progress Note: A&P Assessment and Plan (1) Acute delirium: Code(s): R41.0 - Disorientation, unspecified Status: Acute Assessment and Plan: - avoid steroid use -monitor for improvement since removed off of steroids - No more Steroids (2) Paroxysmal atrial flutter: Code(s): I48.92 - Unspecified atrial flutter Status: Acute Assessment and Plan: continue home medication rate controlled (3) Chronic renal failure, stage 3 (moderate): Code(s): N18.30 - Chronic kidney disease, stage 3 unspecified Status: Acute Assessment and Plan: stable (4) Insulin-requiring or dependent type II diabetes mellitus: Code(s): E11.9 - Type 2 diabetes mellitus without complications; Z79.4 - terminologist (current) use of insulin Status: Acute Assessment and Plan: -continue to monitor blood sugar give insulin as indicated (5) Dementia: Qualifiers: Dementia behavioral or psychological symptom: with psychotic disturbance Dementia severity: moderate Dementia type: unspecified type Qualified Code(s): F03.B2 - Unspecified dementia, moderate, with psychotic disturbance Code(s): F03.90 - Unspecified dementia, unspecified severity, without behavioral disturbance, psychotic disturbance, mood disturbance, and anxiety Status: Acute Assessment and Plan: -more than likely due to steroid use (6) Hypertension: Code(s): I10 - Essential (primary) hypertension Status: Acute Assessment and Plan: -continue home medication -Blood pressure stable. Plan Awaiting on placement and insurance approval Subjective Date/time seen: 08/11/22 09:17 Interval history: Patient yelling out very confused and not aware of his surrounding. Patient became aggressive with family last night but is calm at this time . Patient is in need of placement and awaiting on insurance approval. Exam Narrative: GENERAL:Well-appearing, pale well-nourished, and in no acute distress. HEAD:Normocephalic, atraumatic. EYES: PERRLA does not focus ENT: Nares clear, no rhinorrhea or epistaxis. Mucous membranes moist. CHEST: Clear to auscultation. . HEART: Regular rate and rhythm. Normal peripheral pulses. ABDOMEN: Soft, nontender, nondistended, normal active bowel sounds. EXTREMITIES: Normal range of motion. SKIN: Warm, dry, no rash. NEURO: No focal deficits. Alert and oriented to self confused yelling out Objective Data Vital Signs Vital Signs: Vital Signs - 24 hr 08/10/22 16:00 08/10/22 19:43 08/11/22 00:00 Temperature 98.5 F 98.7 F Pulse Rate 68 68 60 Respiratory Rate 16 16 16 Blood Pressure 130/53 L 120/45 L Pulse Oximetry 94 94 95 Oxygen Delivery Room Air Room Air Room Air 08/11/22 07:59 Temperature 98.3 F Pulse Rate 63 Respiratory Rate 16 Blood Pressure 116/54 L Pulse Oximetry 96 Oxygen Delivery Room Air Intake/Output Intake/Output: Intake & Output 08/08/22 08/09/22 08/10/22 08/11/22 23:59 23:59 23:59 23:59 Intake Total 1000 1200 3370 200 Output Total 2300 1450 1525 Balance 1000 -1100 1920 -1325 Meds/Results Medications: Active Medications Generic Name Dose Route Start Last Admin Trade Name Freq PRN Reason Stop Dose Admin Acetaminophen 650 mg 08/08/22 20:41 08/10/22 07:33 Acetaminophen 325 Mg Tablet PO 650 mg Q4H PRN Administration Mild Pain (1-3) or Fever Apixaban 2.5 mg 08/08/22 21:00 08/10/22 21:16 Apixaban 2.5 Mg Tablet PO 2.5 mg Q12HR QUAN Administration Dextrose 12.5 gm 08/09/22 17:01 08/09/22 20:53 Dextrose 50% 25 Gm/50 Ml Syringe IV PUSH 12.5 gm PRN PRN Administration Hypoglycemia Protocol Donepezil HCl 10 mg 08/08/22 21:00 08/10/22 21:16 Donepezil Hcl 5 Mg Tablet PO 09/07/22 20:59 10 mg HS QUAN Administration Glucagon 1 mg 08/09/22 17:01 Glucagon For Inj 1 Mg Vial IM PRN PRN Hypoglycemia Protocol Glucose 15 gm
[2022-08-11 10:31] VITALS: PULSE 62
[2022-08-11] MEDS: APIXABAN 2.5 MG TABLET PO ×2 (10:31→21:04)
[2022-08-11] MEDS: risperiDONE 0.25 MG TABLET PO (10:31)
[2022-08-11] MEDS: METOPROLOL SUCCINATE EXT REL 50 MG TABCR PO (10:31)
[2022-08-11] MEDS: INSULIN GLARGINE (*BKC) 1,000 UNITS/10 ML VIAL 17 UNITS SUB-Q (10:34)
--- NOTE | 2022-08-11 10:50 | PC.NURSE ---
Patient pulled out his IV.
--- NOTE | 2022-08-11 10:56 | PC.NURSE ---
Patient currently in bed with family at bedside. Patient ate for family and took his am meds late, due to grant writer unable to get patient to take applesauce. Patient awake and alert to self, but sleepy. Stunt Woman will attempt to allow the sedation to wear off enough to get patient up in chair for lunch.
[2022-08-11 11:48] LABS: Glucose Point of Care 183 mg/dl (65-105)
--- NOTE | 2022-08-11 15:05 | PC.NURSE ---
Patient's latest labs show an elevated troponin. WATER SUPERVISOR notified of change in lab findings. Patient notified, as well as his family. Patient requests to be transferred to [facility] due to his trim and burr operator is located there. Patient resting comfortably and denies any change in location or nature of his pain.
[2022-08-11 16:00] VITALS: BP 98/54; PULSE 66; RESP 16; TEMP 36.8; O2SAT 97
[2022-08-11 16:31] LABS: Glucose Point of Care 162 mg/dl (65-105)
--- NOTE | 2022-08-11 18:02 | PC.NURSE ---
Patient became combative during dinner and was ripping at his 's shirt, then grabbed her arms and was squeezing and clawing at 's arms. Shift Stacker and charge nurse intervened and patient grabbed law writer's R arm hard so that law writer couldn't move. Shift Stacker and charge nurse eventually pried hands off and got patient from chair to bed. Patient attempted to rip bourne catheter out and dislodged it from stabilization device. Patient was placed in bed and 2 mg Ativan administered. Patient continued to grab at everything he could. Shift Stacker placed pillow in front of patient and patient grabbed it and blankets until ativan took effect. Patient resting at this time.
--- NOTE | 2022-08-11 18:55 | PC.NURSE ---
20 G IV inserted in RFA. Attempts x 4. Patient tolerated poorly
--- NOTE | 2022-08-11 19:05 | PC.NURSE ---
During patient's outburst, patient grabbed his 's wrist and thumb, causing immediate swelling and bruising. Retail Field Merchandiser attempted to further examine her, but stated that she is okay, and that she has had multiple bruised areas on her arms, and showed advertising copywriter. Patient's left while advertising copywriter stayed with patient until patient calmed down.
[2022-08-11 19:56] VITALS: PULSE 66; RESP 16; O2SAT 97
[2022-08-11] MEDS: traZODone HCL 50 MG TABLET PO (21:03)
[2022-08-11] MEDS: DONEPEZIL HCL 5 MG TABLET 10 MG PO (21:03)
--- NOTE | 2022-08-11 21:05 | PC.NURSE ---
Blood sugar 90 at this time, pt did refuse supper, apple sauce and meal replacement shake given and take fairly.
[2022-08-11 21:07] LABS: Glucose Point of Care 90 mg/dl (65-105)
--- NOTE | 2022-08-11 21:15 | PC.NURSE ---
D5/NS order still active, restarted at this time, call out to EQUIPMENT ENGINEERING TECHNICIAN to clarify.
--- NOTE | 2022-08-11 23:24 | PC.NURSE ---
Pt became agitated, PRN ativan given, blood glucose now 148
[2022-08-11 23:29] LABS: Glucose Point of Care 148 mg/dl (65-105)
[2022-08-12] VITALS: BP 96/48; PULSE 58; RESP 17; TEMP 36.6; O2SAT 96
--- NOTE | 2022-08-12 00:35 | PC.NURSE ---
BP noted to be low at 96/48, MATTRESS PACKER aware, D5/NS to continue at 75mL/hr.
[2022-08-12] MEDS: DEXTROSE 5%/0.9% SOD CHL 1,000 ML 75 ML IV CONT (02:54)
[2022-08-12 05:00] VITALS: BP 126/58
--- NOTE | 2022-08-12 05:20 | PC.NURSE ---
BP using Dinamap at 82/49, manual obtained of 126/58, Pt resting in bed, no behaviors at this time, has been compliant with lab draws, no distress noted.
[2022-08-12 05:39] LABS: Hematocrit 34.5 % (37.0-46.0); Hemoglobin 11.6 g/dL (12.4-15.3); Mean Corpuscular HGB Conc 33.6 g/dL (32.0-36.0); Mean Corpuscular Hemoglobin 30.6 pg (27.0-31.0); Mean Platelet Volume 9.9 fl (8.7-11.0); Platelet Count Result 211 K/mm3 (150-420); Red Blood Count 3.79 M/mm3 (4.70-6.10); Red Cell Distribution Width 11.8 % (11.6-14.4); White Blood Count 6.8 K/mm3 (4.8-10.8)
[2022-08-12 05:47] LABS: Anion Gap 5 mmol/L (8-16); Blood Urea Nitrogen 13 mg/dL (7-18); Calcium 7.7 mg/dL (8.5-10.1); Carbon Dioxide 28 mmol/L (21-32); Chloride 107 mmol/L (98-108); Estimated CRCL calculation 39 ml/min; Estimated Glomerular Filt Rate 54; Glucose 169 mg/dL (70-99); Osmolality Calculated 294 mOsm/kg (285-295); Potassium 3.8 mmol/L (3.5-5.1); Sodium 140 mmol/L (136-145)
[2022-08-12 08:00] VITALS: BP 137/56; PULSE 75; RESP 14; TEMP 36.8; O2SAT 94
[2022-08-12] MEDS: LORazepam INJ (*CRX) 2 MG/ML VIAL IV PUSH ×2 (08:22→17:23)
[2022-08-12 09:48] VITALS: PULSE 75
[2022-08-12 11:45] LABS: Glucose Point of Care 132 mg/dl (65-105)
--- NOTE | 2022-08-12 15:26 | WPDPN ---
Progress Note: A&P Assessment and Plan (1) Acute delirium: Code(s): R41.0 - Disorientation, unspecified Status: Acute Assessment and Plan: - avoid steroid use -monitor for improvement since removed off of steroids - No more Steroids (2) Paroxysmal atrial flutter: Code(s): I48.92 - Unspecified atrial flutter Status: Acute Assessment and Plan: continue home medication rate controlled (3) Chronic renal failure, stage 3 (moderate): Code(s): N18.30 - Chronic kidney disease, stage 3 unspecified Status: Acute Assessment and Plan: stable (4) Insulin-requiring or dependent type II diabetes mellitus: Code(s): E11.9 - Type 2 diabetes mellitus without complications; Z79.4 - vermin exterminator (current) use of insulin Status: Acute Assessment and Plan: -continue to monitor blood sugar give insulin as indicated (5) Dementia: Qualifiers: Dementia behavioral or psychological symptom: with psychotic disturbance Dementia severity: moderate Dementia type: unspecified type Qualified Code(s): F03.B2 - Unspecified dementia, moderate, with psychotic disturbance Code(s): F03.90 - Unspecified dementia, unspecified severity, without behavioral disturbance, psychotic disturbance, mood disturbance, and anxiety Status: Acute Assessment and Plan: -more than likely due to steroid use (6) Hypertension: Code(s): I10 - Essential (primary) hypertension Status: Acute Assessment and Plan: -continue home medication -Blood pressure stable. Plan Awaiting on placement and insurance approval Subjective Date/time seen: 08/12/22 15:26 Interval history: patient has remained in the bed almost all day because he has been sleeping grandma not think patient's is at the bedside. Patient has still been grabbing at things when he does open his eyes we attempt to get him in monitor feet him supper tonight we are still waiting on and seen by Physical therapy not long ago we are still just waiting on placement Exam Narrative: GENERAL:Well-appearing, pale well-nourished, and in no acute distress. HEAD:Normocephalic, atraumatic. EYES: PERRLA does not focus ENT: Nares clear, no rhinorrhea or epistaxis. Mucous membranes moist. CHEST: Clear to auscultation. . HEART: Regular rate and rhythm. Normal peripheral pulses. ABDOMEN: Soft, nontender, nondistended, normal active bowel sounds. EXTREMITIES: Normal range of motion. SKIN: Warm, dry, no rash. NEURO: No focal deficits. Alert and oriented to self confused yelling out Objective Data Vital Signs Vital Signs: Vital Signs - 24 hr 08/11/22 16:00 08/11/22 19:56 08/12/22 00:00 Temperature 98.3 F 97.8 F Pulse Rate 66 66 58 L Respiratory Rate 16 16 17 Blood Pressure 98/54 L 96/48 L Pulse Oximetry 97 97 96 Oxygen Delivery Room Air Room Air Room Air 08/12/22 05:00 08/12/22 09:48 08/12/22 08:00 Temperature 98.2 F Pulse Rate 75 75 Respiratory Rate 14 Blood Pressure 126/58 L 137/56 L Pulse Oximetry 94 Oxygen Delivery Room Air Intake/Output Intake/Output: Intake & Output 08/09/22 08/10/22 08/11/22 08/12/22 23:59 23:59 23:59 23:59 Intake Total 1200 3370 2266.25 590 Output Total 2300 1450 2675 950 Balance -1100 1920 -408.75 -360 Meds/Results Medications: Active Medications Generic Name Dose Route Start Last Admin Trade Name Freq PRN Reason Stop Dose Admin Acetaminophen 650 mg 08/08/22 20:41 08/10/22 07:33 Acetaminophen 325 Mg Tablet PO 650 mg Q4H PRN Administration Mild Pain (1-3) or Fever Apixaban 2.5 mg 08/08/22 21:00 08/12/22 09:48 Apixaban 2.5 Mg Tablet PO Not Given Q12HR [facility] Dextrose 12.5 gm 08/09/22 17:01 08/09/22 20:53 Dextrose 50% 25 Gm/50 Ml Syringe IV PUSH 12.5 gm PRN PRN Administration Hypoglycemia Protocol Donepezil HCl 10 mg 08/08/22 21:00 08/11/22 21:03 Donepezil Hcl
[2022-08-12 16:00] VITALS: BP 140/65; PULSE 75; RESP 14; TEMP 36.7; O2SAT 94
[2022-08-12 16:45] LABS: Glucose Point of Care 161 mg/dl (65-105)
[2022-08-12 19:52] VITALS: PULSE 75; RESP 14; O2SAT 94
[2022-08-12] MEDS: APIXABAN 2.5 MG TABLET PO (21:16)
[2022-08-12] MEDS: DONEPEZIL HCL 5 MG TABLET 10 MG PO (21:16)
[2022-08-12] MEDS: traZODone HCL 50 MG TABLET PO (21:16)
[2022-08-12 21:22] LABS: Glucose Point of Care 152 mg/dl (65-105)
[2022-08-13] VITALS: BP 131/56; PULSE 58; RESP 17; TEMP 36.3; O2SAT 98
[2022-08-13] MEDS: LORazepam INJ (*CRX) 2 MG/ML VIAL IV PUSH ×2 (02:10→09:56)
[2022-08-13 08:00] VITALS: BP 136/54; PULSE 63; RESP 14; TEMP 36.6; O2SAT 96
[2022-08-13 08:05] LABS: Glucose Point of Care 137 mg/dl (65-105)
[2022-08-13 09:36] VITALS: PULSE 84
[2022-08-13] MEDS: risperiDONE 0.25 MG TABLET PO (09:36)
[2022-08-13] MEDS: METOPROLOL SUCCINATE EXT REL 50 MG TABCR PO (09:36)
[2022-08-13] MEDS: APIXABAN 2.5 MG TABLET PO (09:36)
--- NOTE | 2022-08-13 10:36 | PM.DS ---
DS: Admitting Diagnosis Discharge Date 08/13/2021 Admitting Diagnosis Psychosis, Steroid induced psychosis DS: Discharge Diagnosis Discharge Diagnosis (1) Acute delirium: Code(s): R41.0 - Disorientation, unspecified Status: Acute Assessment and Plan: - avoid steroid use -monitor for improvement since removed off of steroids - No more Steroids (2) Paroxysmal atrial flutter: Code(s): I48.92 - Unspecified atrial flutter Status: Acute Assessment and Plan: continue home medication rate controlled (3) Chronic renal failure, stage 3 (moderate): Code(s): N18.30 - Chronic kidney disease, stage 3 unspecified Status: Acute Assessment and Plan: stable (4) Insulin-requiring or dependent type II diabetes mellitus: Code(s): E11.9 - Type 2 diabetes mellitus without complications; Z79.4 - residential (current) use of insulin Status: Acute Assessment and Plan: -continue to monitor blood sugar give insulin as indicated (5) Dementia: Qualifiers: Dementia behavioral or psychological symptom: with psychotic disturbance Dementia severity: moderate Dementia type: unspecified type Qualified Code(s): F03.B2 - Unspecified dementia, moderate, with psychotic disturbance Code(s): F03.90 - Unspecified dementia, unspecified severity, without behavioral disturbance, psychotic disturbance, mood disturbance, and anxiety Status: Acute Assessment and Plan: -more than likely due to steroid use (6) Hypertension: Code(s): I10 - Essential (primary) hypertension Status: Acute Assessment and Plan: -continue home medication -Blood pressure stable. 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 Patient was somewhat combative at times with Ativan administer and needed patient was alert but not aware of his surroundings he knew his name. We initially started off treating patient with IV fluids and some IV antibiotics. patient refused the vitamins oral medications at times as he was very confused needed to be watched as he would attempt to get up and fall he was a high fall risk patient required to be fed and eating quite happy and under care for himself. Patient had been in the hospital prior air to come into our hospital and had been home only a few days of becoming more aggressive with family he had been treated for COVID dehydration it was not out of the hospital for approximately 9 days. Family at this time is no longer able to care for him placement has been found and he will go to a dementia unit he in [facility]. Time Spent with Patient Time attestation: Total time spent providing and/or coordinating discharge services: Exam Narrative: GENERALilll-appearing, pale well-nourished, and in no acute distress. HEAD:Normocephalic, atraumatic. EYES: PERRLA does not focus ENT: Nares clear, no rhinorrhea or epistaxis. Mucous membranes moist. CHEST: Clear to auscultation. . HEART: Regular rate and rhythm. Normal peripheral pulses. ABDOMEN: Soft, nontender, nondistended, normal active bowel sounds. EXTREMITIES: Normal range of motion. SKIN: Warm, dry, no rash. NEURO: No focal deficits. Alert and oriented to self confused yelling out grabing at things at time conversation is word salad DS: Data Data Completed and Pending Labs on day of discharge: Labs from last 24 hours 08/13/22 08/12/22 08/12/22 08:00 21:15 16:42 POC Capillary Glucose 137 H 152 H 161 H 08/12/22 11:42 POC Capillary Glucose 132 H Preliminary micro results at discharge 08/08/22 17:25 Blood Culture - Preliminary Blood 08/08/22 17:25 Blood Culture - Preliminary Blood Discharge Plan Discharg
[2022-08-13 11:50] LABS: Glucose Point of Care 133 mg/dl (65-105)
--- NOTE | 2022-08-13 13:10 | PC.NURSE ---
Gave report to Franca at [facility].
--- NOTE | 2022-08-13 13:58 | PC.NURSE ---
Report given to [facility].
[2022-08-13] MEDS: LORazepam INJ (*CRX) 2 MG/ML VIAL IM (13:59)
--- NOTE | 2022-08-14 11:23 | PC.NURSE ---
detention nurse states she didn't understand the med list. Called charge nurse here for clarification.
== END 2022-08-13 13:55 ==
LOC: CHSED 21:05 → CHS2ND 21:08
PROVIDERS: Nurse Practitioner Family; Admitting Provider Internal Medicine; Emergency Provider Emergency Medicine; PCP Internal Medicine; Visit Provider Internal Medicine
DX: F03.B2 Unspecified dementia, moderate, with psychotic disturbance (principal); F03.911 Unspecified dementia, unspecified severity, with agitation; F05 Delirium due to known physiological condition; T38.0X5A Adverse effect of glucocorticoids and synthetic analogues, initial encounter; I48.20 Chronic atrial fibrillation, unspecified; I12.9 Hypertensive chronic kidney disease with stage 1 through stage 4 chronic kidney disease, or unspecified chronic kidney disease; N18.30 Chronic kidney disease, stage 3 unspecified; E11.22 Type 2 diabetes mellitus with diabetic chronic kidney disease; E78.5 Hyperlipidemia, unspecified; Z87.891 Personal history of nicotine dependence; Z79.4 Long term (current) use of insulin; Z85.038 Personal history of other malignant neoplasm of large intestine
CPT/HCPCS: 36415; 70450; 71045; 80048; 80053; 81001; 82948; 83605; 84443; 84484; 85025; 85027; 85610; 85730; 86140; 87040; 93005; 96361; 96372; 96374; 96375; 96376; 97161; 97165; 97530; 99285; A9270; G0378; J1630; J1815; J2060; J7030; J7042